=== PATIENT | male | born 2000 | race Caucasian/White ===

== ENCOUNTER 2020-06-28 14:35 | Outpatient (REF) | payer MEDICAID, SELFPAY ==
[2020-06-28 15:12] LABS: COVID-19 Test Negative (Negative)
== END 2020-06-28 14:36 | disposition home or self-care (01) ==
LOC: HO.LAB 14:35
PROVIDERS: Visit Provider Internal Medicine
DX: Z20.822 Contact with and (suspected) exposure to COVID-19 (principal)
CPT/HCPCS: 36415; 87635; C9803

== ENCOUNTER 2020-07-10 19:15 | Emergency (ER) | payer MEDICAID, SELFPAY ==
[2020-07-10 19:36] VITALS: BP 146/94; PULSE 103; RESP 18; TEMP 36.6; O2SAT 98; BMI 37.9
[2020-07-10 20:06] LABS: COVID-19 Test Negative (Negative)
--- NOTE | 2020-07-10 21:16 | ED.GENADULT ---
HPI - General Adult General Chief complaint: General Medical Stated complaint: weakness Time Seen by Provider: 07/10/20 21:16 Source: patient Mode of arrival: ambulatory Limitations: no limitations History of Present Illness HPI narrative: Patient with multiple complaints headache body aches nasal discharge allergies sore throat diarrhea everything started today no fever no chills no shortness of breath no cough. No other family member sick Related Data Previous Rx's Medication Instructions Recorded fluticasone propionate 2 spray INTRANASAL DAILY #16 g 07/10/20 ibuprofen 600 mg PO Q6H PRN #20 tab 07/10/20 Allergies Allergy/AdvReac Type Severity Reaction Status Date / Time No Known Allergies Allergy Unverified 11/17/19 16:55 [No Known Allergies*] Review of Systems Review of Systems: Yes all other systems are reviewed and are negative [facility] Past Medical History Medical History Asthma Social History Social History Alcohol intake: never Smoking Status: Never smoker Use of substances other than those prescribed or required for medical reasons: No Advance Directives: No Advance Directives Information Provided: Yes Physical Exam Vital Signs: Vital Signs: Last Vital Signs Temp 98.4 F 07/10/20 21:31 Pulse 98 07/10/20 21:31 Resp 16 07/10/20 21:31 BP 160/96 H 07/10/20 21:31 Pulse Ox 99 07/10/20 21:31 Body Mass Index 37.9 Appearance: Alert. Oriented X3. No acute distress. Eyes: PERRLA, No Nystagmus ENT: Pharynx normal. Oral Mucosa moist inflamed nasal turbinates Neck: Normal inspection. Neck supple. CVS: Normal heart rate and rhythm. Pulses normal. Respiratory: No respiratory distress. Equal air entry bilateral, no wheezing/rales/rhonchi Abdomen: Soft and nontender. Bowel sounds are present, no mass palpable, no CVA tenderness Skin: Skin warm and dry. Normal skin color. Normal skin turgor. Extremities: No lower extremity edema. No calf tenderness Neuro: Oriented X 3. No motor deficit. No sensory deficit Medical Decision Making MDM Narrative Medical decision making narrative: Patient with multiple minor complaints COVID testing is negative will discharge him home on symptomatic treatment will give him nasal Flonase and ibuprofen for headache Lab Data Lab results reviewed: Yes I reviewed the patient's lab results. Labs: Lab Results 07/10/20 Range/Units 19:39 COVID-19 (YANN) Negative (Negative) COVID-19 Clin Com See Note Discharge Plan Discharge Clinical Impression: Allergic rhinosinusitis Qualifiers: Allergic rhinitis trigger: unspecified Allergic rhinitis seasonality: seasonal Qualified Code(s): J30.2 - Other seasonal allergic rhinitis Patient Disposition: Home, Self-Care Instructions: Allergic Rhinitis (ED) Additional Instructions: Take nasal spray as advised. Follow with PCP if not better Drink plenty of fluids Prescriptions: New fluticasone propionate 50 mcg/actuation spray,suspension 2 spray intranasal DAILY Qty: 16 RF: 0 ibuprofen 600 mg tablet 600 mg PO Q6H PRN (Reason: pain) Qty: 20 RF: 0 Interventions: ED Discharge Assessment Last Done: 07/10/20 22:23 Discharge Date/Time: 07/10/20 22:24
[2020-07-10 21:31] VITALS: BP 160/96; PULSE 98; RESP 16; TEMP 36.9; O2SAT 99
[2020-07-10] MEDS: Ibuprofen 600 MG TABLET PO (22:16)
== END 2020-07-10 22:24 | disposition home or self-care (01) ==
PROVIDERS: Emergency Provider Internal Medicine
DX: J30.2 Other seasonal allergic rhinitis (principal); R53.1 Weakness; Z20.822 Contact with and (suspected) exposure to COVID-19
CPT/HCPCS: 36415; 87635; 99283; 99284

== ENCOUNTER 2020-07-26 16:46 | Emergency (ER) | payer MEDICAID, SELFPAY ==
[2020-07-26 17:17] VITALS: BP 110/80; PULSE 93; RESP 18; TEMP 36.3; O2SAT 98; BMI 41.1
--- NOTE | 2020-07-26 20:37 | ED.ABDPAIN ---
HPI - Abdominal Pain General Chief Complaint: Abdominal Pain Stated Complaint: rectal bleeding Time Seen by Provider: 07/26/20 17:13 History of Present Illness HPI narrative: Patient is a 19-year-old male with no significant past medical history. Patient had a bowel movement with formed stool today. Noticed also blood in the toilet bowl. Came to the emergency department. Had some diffuse abdominal cramping. No history of similar symptoms in the past. No nausea no vomiting. Patient's stool was normal in consistency. Patient denies any history of hemorrhoids. No coughing or congestion no diarrhea. No melena. No history of being on blood thinners. Patient is from home. Related Data Previous Rx's Medication Instructions Recorded fluticasone propionate 2 spray INTRANASAL DAILY #16 g 07/10/20 ibuprofen 600 mg PO Q6H PRN #20 tab 07/10/20 Allergies Allergy/AdvReac Type Severity Reaction Status Date / Time No Known Allergies Allergy Verified 07/26/20 17:21 [No Known Allergies*] Review of Systems Review of Systems Constitutional: No Weight loss, No Fever, No Chills, No Night Sweats, No Fatigue, No Malaise ENT/Mouth: No Hearing loss, No Ear Pain, No Nasal Congestion, No Sinus Pain, No Hoarseness, No sore throat, No Rhinorrhea, No Swallowing Difficulty Eyes: No Eye Pain, No Swelling, No Redness, No Foreign Body, No Discharge, No Vision Changes Cardiovascular: No Chest Pain, No SOB, No Dyspnea on Exertion, No Orthopnea, No Edema, No Palpitations Respiratory: No Cough, No Sputum, No Wheezing, No Smoke Exposure, No Dyspnea Gastrointestinal: No Nausea, No Vomiting, No Diarrhea, No Constipation, No abdominal Pain, No Hematochezia, No Melena Genitourinary: no irregular bleeding, No Dysuria, No Urinary Frequency, No Hematuria, No Urinary Incontinence, No Urgency, No Flank Pain, No Urinary Flow Changes, No Hesitancy Musculoskeletal: No joint pain, No Myalgias, No Joint Swelling Skin: No Skin Lesions, No rash Neuro: No Weakness, No Numbness, No Paresthesias, No Loss of Consciousness, No Dizziness, No Headache Psych: No Anxiety/Panic, No Depression, No SI/HI/AH/VH, No Social Issues, Heme/Lymph: No Bruising, No Bleeding,No Lymphadenopathy Endocrine: No Polyuria, No Polydipsia, No Temperature Intolerance Physical Exam Vital Signs: Vital Signs: Last Vital Signs Temp 98 F 07/26/20 21:33 Pulse 80 07/26/20 21:37 Resp 17 07/26/20 21:33 BP 145/85 H 07/26/20 21:37 Pulse Ox 98 07/26/20 21:33 Body Mass Index 41.1 Appearance: Alert. Oriented X3. No acute distress. Eyes: Pupils equal, round and reactive to light. ENT: Pharynx normal. Neck: Normal inspection. Neck supple. No lymph nodes noted. No crepitus CVS: Normal heart rate and rhythm. Pulses normal. Normal S1 and S2 Respiratory: No respiratory distress. Breath sounds normal. No Wheezing. No rales Abdomen: Soft and nontender. No rigidity. No distention. good BS x4 Rectal exam showed no external hemorrhoids. No fissures noted. Skin: Skin warm and dry. Normal skin color. Normal skin turgor. Extremities: No lower extremity edema. Neurovascular intact to all extremities. No Lacerations. No Rash Neuro: Oriented X 3. No motor deficit. No sensory deficit. Moving all extermities. No slurred speech MDM - Abdominal Pain MDM Narrative Medical decision making narrative: Positive formed stool in otherwise well person notice blood in the toilet bowl. Question hemorrhoids. Will check patient's blood count. He is in no distress. His abdominal exam is soft nontender nondistended. Patient feels cramping from time to time. Will check electrolytes as well. Currently in stable condition. Patient's hemoglobin is 14. Well appearing. No distress. Will discharge patient home. Close follow-up on an outpatient basis. Question internal hemorrhoids causing bleed. In stable condition with discharge Lab Data Result diagrams: 07/26/20 21:50 07/26/20 21:50 Labs: Lab Results 07/26/20 07/26/20 07/26/20 Range/Units 21:50 21:50 21:50 WBC 9.1 (4.8-10.8) X10*3/uL RBC 5.27 (4.60-5.80) X10*6/uL Hgb 14.0 (14.0-18.0) g/dl Hct 42.8 (42-52) % MCV 81.2 (80-98) fL MCH 26.6 L (27.0-33.0) pg MCHC 32.7 (31.0-36.0) g/dl RDW 13.5 (11.0-16.0) % Plt Count TNP MPV TNP Immature Gran % (Auto) 0.1 (0.0-0.4) % Neut % (Auto) 57.4 (45-73) % Lymph % (Auto) 32.0 (20-40) % Stanly % (Auto) 7.3 (2-11) % Eos % (Auto) 2.8 (0-4) % Baso % (Auto) 0.4 (0-2) % Lymph # (Auto) 2.9 (1.2-4.9) X10*3/uL Stanly # (Auto) 0.7 (0.1-1.2) X10*3/uL Eos # (Auto) 0.3 (0.0-0.4) X10*3/uL Baso # (Auto) 0.0 (0.0-0.2) X10*3/uL Abs Immat Gran (auto) 0.01 (0.00-0.03) X10*3/uL Absolute Neuts (auto) 5.2 (2.0-8.3) X10*3/uL Absolute Nucleated RBC 0.000 (0.0-0.012) X10*3/uL Nucleated RBC % (auto) 0.0 (0.0-0.2) /100WBC Hold Blue Top SEE NOTE Sodium 138 (135-145) mmol/L Potassium 4.8 (3.3-5.1) mmol/L Chloride 102 (96-108) mmol/L Carbon Dioxide 26 (22-29) mmol/L Anion Gap 15 (12-20) BUN 15 (9-16) mg/dL Creatinine 0.79 (0.5-1.4) mg/dL Estim Creat Clear Calc 173.8 Estimated GFR > 60 Random Glucose 79 (60-115) mg/dL Calcium 10.0 (8.4-10.2) mg/dL Total Bilirubin 0.3 (0.0-1.0) mg/dL AST 37 (5-37) U/L ALT 48 H (0-40) U/L Alkaline Phosphatase 94 (39-117) U/L Total Protein 8.7 H (6.5-8.0) g/dL Albumin 4.7 (3.5-5.0) g/dL Lipase 26 (8-78) U/L Discharge Plan Discharge Clinical Impression: Hemorrhoid Patient Disposition: Home, Self-Care Instructions: Hemorrhoids (ED), Rectal Bleeding (ED) Prescriptions: No Action fluticasone propionate 50 mcg/actuation spray,suspension 2 spray intranasal DAILY Qty: 16 RF: 0 ibuprofen 600 mg tablet 600 mg PO Q6H PRN (Reason: pain) Qty: 20 RF: 0 Referrals: Gila Smith MD [Primary Care Provider] - 2 days PMF Past Medical History Medical History Asthma Social History Social History Alcohol intake: never Advance Directives: No Advance Directives Information Provided: Yes
[2020-07-26 21:33] VITALS: BP 130/74; PULSE 81; RESP 17; TEMP 36.6; O2SAT 98
[2020-07-26 21:34] VITALS: BP 130/74; BP 132/90; PULSE 81; PULSE 84
[2020-07-26 21:35] VITALS: BP 145/85; PULSE 80
[2020-07-26 21:37] VITALS: BP 145/85; PULSE 80
[2020-07-26 21:56] LABS: Basophils Percent Auto 0.4 % (0-2); MANUAL DIFF FLAG SCAN; Monocytes Absolute Auto 0.7 X10*3/uL (0.1-1.2); PLT CLUMP 1; Red Cell Distribution Width 13.5 % (11.0-16.0); SCAN SMEAR FLAG 1
[2020-07-26 21:58] LABS: Eosinophils Absolute Auto 0.3 X10*3/uL (0.0-0.4); Eosinophils Percent Auto 2.8 % (0-4); Hematocrit 42.8 % (42-52); Imm Gran Abs Auto 0.01 X10*3/uL (0.00-0.03); Imm Gran Pct Auto 0.1 % (0.0-0.4); Lymphocytes Absolute Auto 2.9 X10*3/uL (1.2-4.9); Mean Corpuscular HGB Conc 32.7 g/dl (31.0-36.0); Mean Corpuscular Hemoglobin 26.6 pg (27.0-33.0); Mean Corpuscular Volume 81.2 fL (80-98); Monocytes Percent Auto 7.3 % (2-11); Neutrophils Absolute Auto 5.2 X10*3/uL (2.0-8.3); Neutrophils Percent Auto 57.4 % (45-73); Red Blood Count 5.27 X10*6/uL (4.60-5.80); White Blood Count 9.1 X10*3/uL (4.8-10.8)
[2020-07-26 22:25] LABS: Alanine Aminotransferase 48 U/L (0-40); Albumin Level 4.7 g/dL (3.5-5.0); Alkaline Phosphatase 94 U/L (39-117); Anion Gap 15 (12-20); Aspartate Amino Transferase 37 U/L (5-37); Bilirubin Total 0.3 mg/dL (0.0-1.0); Blood Urea Nitrogen 15 mg/dL (9-16); Carbon Dioxide 26 mmol/L (22-29); Chloride 102 mmol/L (96-108); Creatinine Clr Calc Pharmacy 173.8; Estimated Glomerular Filt Rate > 60; Glucose Random 79 mg/dL (60-115); Lipase 26 U/L (8-78); Potassium 4.8 mmol/L (3.3-5.1); Sodium 138 mmol/L (135-145); Total Protein 8.7 g/dL (6.5-8.0)
[2020-07-27 00:13] LABS: SLIDE REVIEW VERIFIED
== END 2020-07-26 22:48 | disposition home or self-care (01) ==
PROVIDERS: Emergency Provider Emergency Medicine Emergency Medical Services; PCP Family Medicine
DX: K64.9 Unspecified hemorrhoids (principal); R10.9 Unspecified abdominal pain; Z79.899 Other long term (current) drug therapy
CPT/HCPCS: 36415; 80053; 83690; 85025; 99283

== ENCOUNTER 2021-04-24 19:26 | Emergency (ER) | payer MEDICAID, SELFPAY ==
--- NOTE | ~2021-04-24 | CT_ITS ---
EXAMINATION: CT HEAD WITHOUT CONTRAST CT CERVICAL SPINE WITHOUT CONTRAST CT LUMBAR SPINE WITHOUT CONTRAST CT LUMBAR SPINE WITHOUT CONTRAST CLINICAL INFORMATION: Headache. Neck pain. Mid back pain. Lumbar back pain. COMPARISON: CTA head and neck from 05/18/2018. TECHNIQUE: Contiguous axial imaging was performed from the skull base to vertex without intravenous administration of contrast. Multidetector helical imaging of the cervical, thoracic, and lumbar spine was obtained without intravenous contrast. Multiple axial reformats and coronal/sagittal reconstructions were created the technologist workstation for review. This CT examination was performed using dose optimization techniques as appropriate, variously including the following: *Automated exposure control. *Adjustment of mA and/or kV according to patient size (this includes techniques or standardized protocols for targeted exams where dose is matched to indication/reason for exam; i.e. extremities or head). *Use of iterative reconstruction technique. DLP: 4150 mGy-cm FINDINGS: CT Head: There is no evidence of acute intracranial hemorrhage or edematous territorial infarction. There is no abnormal attenuation within the brain parenchyma. Cordero-white matter differentiation is preserved. The ventricles are normal in size and configuration. No evidence for obstructive hydrocephalus. No abnormal mass effect or midline shift. No extra-axial fluid collections. No acute soft tissue or osseous abnormalities. Moderate mucosal thickening of the paranasal sinuses. The mastoid air cells and middle ear cavities are clear. CT Cervical Spine: The atlantooccipital and atlantoaxial articulations remain well aligned. Straightening of the normal cervical lordosis. Otherwise, there is anatomic alignment of the vertebral bodies and posterior elements. No evidence of acute fracture or subluxation. The vertebral body heights and disc spaces are maintained. Mild multilevel facet joint arthropathy. No demonstrated significant osseous encroachment on the neural foramina. There is no prevertebral soft tissue swelling. The thyroid gland and remaining cervical soft tissues are normal in appearance. The lung apices demonstrate no abnormalities. CT Thoracic Spine: There are 12 rib-bearing thoracic type vertebrae. Normal anatomic alignment. No evidence of acute fracture or traumatic subluxation. The vertebral body heights are maintained. The intervertebral disc spaces are maintained. Mild multilevel facet joint arthropathy. No demonstrated significant osseous encroachment on the neural foramina. No suspicious lytic or sclerotic osseous lesions. No significant abnormalities of the paraspinal musculature. Limited evaluation of the intrathoracic structures without significant abnormalities. The descending thoracic aorta is of normal contour and caliber. CT Lumbar Spine: There are 5 nonrib-bearing lumbar-type vertebrae. Normal anatomic alignment. No evidence of acute fracture or traumatic subluxation. Small Schmorl's node in the superior endplate of L2. Otherwise, the vertebral body heights are maintained. The intervertebral disc spaces are largely maintained. Mild posterior disc bulges at L4-L5 and L5-S1. Mild multilevel facet joint arthropathy. No demonstrated overt spinal canal or neural foraminal stenosis. No suspicious lytic or sclerotic osseous lesions. No significant abnormalities of the paraspinal musculature. There is a nonobstructive 0.4 cm left-sided renal stone. Limited evaluation of the intra-abdominal structures without additional significant abnormalities. The abdominal aorta is of normal contour and caliber. CT/CT cervical spine wo con IMPRESSION: 1. No evidence of acute intracranial hemorrhage or edematous territorial infarction. 2. No evidence of acute fracture or traumatic subluxation of the cervical, thoracic, or lumbar spine. 3. Mild multilevel degenerative spondyloarthropathy of the spine. On this limited exam without intrathecal contrast, there is no demonstrated overt spinal canal or neural foraminal stenosis. 4. Moderate sinonasal mucosal disease. 5. Nonobstructive left-sided nephrolithiasis.
[2021-04-24 19:37] VITALS: BP 135/93; PULSE 88; RESP 18; TEMP 36.4; O2SAT 96; BMI 52.2
--- NOTE | 2021-04-24 20:29 | ED.NECK ---
HPI - Neck Pain/Injury General Chief Complaint: Neck Pain/Injury Stated Complaint: work injury neck and head pain Time Seen by Provider: 04/24/21 20:21 Source: patient Mode of arrival: ambulatory Limitations: no limitations History of Present Illness HPI Narrative: 20-year-old male presents with a work-related injury complaining of neck pain, pain to the midline of his back, headache since yesterday. Patient tells me he was backing of a truck at work, the back of the truck hit something and he was jerked forward and backwards hitting his head rapidly on the head rest. Since then he complains of headache, dizziness, neck pain, pain down the midline of his back. He tells me it is constant in nature. Worse with movement better at rest. He has no back problems. Otherwise healthy. He denies changes in bladder/bowel habits, denies incontinence, denies sensory/motor deficits, paresthesias, numbness, chest pain, shortness of breath, fevers, chills, abdominal pain, weakness, vision changes. Patient is not on blood thinners. MD complaint: neck pain, upper back pain and other (back pain ) Onset (ago): day(s) (1) Place: home Severity: severe Severity scale (1-10): 10 Quality: sharp Duration: constant Relieving factors: none Exacerbating factors: immobilization, movement of extremity and movement of neck Context: direct blow Associated symptoms: headache Related Data Previous Rx's Medication Instructions Recorded fluticasone propionate 50 2 spray INTRANASAL DAILY #16 g 07/10/20 mcg/actuation nasal spray,suspension ibuprofen 600 mg tablet 600 mg PO Q6H PRN #20 tab 07/10/20 cyclobenzaprine 10 mg tablet 10 mg PO BEDTIME PRN #7 tab 04/24/21 Allergies Allergy/AdvReac Type Severity Reaction Status Date / Time No Known Allergies Allergy Verified 04/24/21 19:37 [No Known Allergies*] Review of Systems Review of Systems: Constitutional : No Weight loss, No Fever, No Chills, No Fatigue, No Malaise ENT/Mouth : No sore throat, No Rhinorrhea Eyes: No Eye Pain, No Swelling, No Redness Cardiovascular : No Chest Pain, No SOB, No Dyspnea on Exertion, No Orthopnea, No Edema, No Palpitations Respiratory : No Cough, No Sputum, No Wheezing Gastrointestinal : No Nausea, No Vomiting, No Diarrhea, No Constipation, No abdominal Pain, No Hematochezia, No Melena Genitourinary : No Dysuria, No Urinary Frequency, No Hematuria, Musculoskeletal : + joint pain, No Myalgias, No Joint Swelling, + back pain Skin : No Skin Lesions, No rash Neuro : No Weakness, No Numbness, No Dizziness, No Headache Psych : No Anxiety/Panic, No Depression All other systems reviewed and are negative Yes all other systems are reviewed and are negative [facility] Past Medical History Attestation statement: The following information was validated with the patient. Source: old records reviewed and nursing notes reviewed Medical History Asthma Social History Social History Alcohol intake: never Advance Directives: No Advance Directives Information Provided: No Physical Exam Vital Signs: Vital Signs: Last Vital Signs Temp 97.5 F 04/24/21 19:37 Pulse 88 04/24/21 19:37 Resp 18 04/24/21 19:37 BP 135/93 H 04/24/21 19:37 Pulse Ox 96 04/24/21 19:37 BMI result Body Mass Index 52.2 VSS Appearance: Alert.? Oriented X3.? No acute distress.? Head: Normocephalic, atraumatic, no step-offs or deformities Eyes: Pupils equal, round and reactive to light.? ENT: Pharynx normal.? Neck: Normal inspection.? Neck supple.? CVS: Normal heart rate and rhythm.? Pulses normal.? Respiratory: No respiratory distress.? Breath sounds normal.? Abdomen: Soft and nontender.? Skin: Skin warm and dry.? Normal skin color.? Normal skin turgor.? Extremities: No lower extremity edema.? No calf ttp. 5/5 strength to bilateral upper and lower extremities Back: No midline tenderness, no C-spine tenderness, full range of motion, no CVA tenderness bilaterally Neuro: Oriented X 3.? No motor deficit.? No sensory deficit. CN 2-12 intact 2+ patellar reflexes equal in bilateral. Normal [id number], [id number]. No saddle paresthesias. Course Reevaluation(s) Reevaluation #1: CTs of head, cervical spine and lumbar spine without acute findings, subluxations, dislocations or traumatic injuries. Some incidental findings were seen a these were shared with the patient. Advised return with new or worsening symptoms. Will be discharged home on a muscle relaxer. Likely whiplash. comfortable with discharge. Time: 22:39 MDM - Neck Pain/Injury [facility] Narrative Medical decision making narrative: 2033 20 yo m presents with acute whiplash with neck pain, headache and pain down the midline of his back. Physical examination significant for pain down his spine from cervical to thoracic region. Paraspinous tenderness in cervical, and thoracic region. No focal neuro deficits. No saddle paresthesias. History and physical examination not consistent with cauda equina, epidural abscess, cervical subluxation or acute fracture. Patient ambulating with a steady gait no issues. Plan at this time is to obtain imaging to rule out fractures/dislocations. Medical Records Attestation: I reviewed the patient's medical records. Lab Data Attestation: I reviewed the patient's lab results. Critical Care Time Critical Care Time Critical Care Time: No Discharge Plan Discharge Clinical Impression: Strain of neck muscle, Work related injury, Whiplash injury to neck Patient Disposition: Home, Self-Care Instructions: Cervical Strain (DC), Muscle Strain (ED) Additional Instructions: Take your medications as prescribed. If you were prescribed antibiotics today, it is important that you take your medication to their entirety, do not skip any doses, do not finish them early. Follow-up with your primary care provider this week. Follow up with the work tima [phone] Return to the emergency department with new or worsening symptoms. Such as changes in bladder/bowel habits, inability to control your bladder/bowel, weakness, chest pain, shortness of breath, fevers, chills, numbness, tingling. You can alternate ibuprofen every 6, Tylenol every 4 as needed for pain. In case of emergency call 911 CT/CT head/brain wo con IMPRESSION: 1. No evidence of acute intracranial hemorrhage or edematous territorial infarction. ? 2. No evidence of acute fracture or traumatic subluxation of the cervical, thoracic, or lumbar spine. ? 3. Mild multilevel degenerative spondyloarthropathy of the spine. On this limited exam without intrathecal contrast, there is no demonstrated overt spinal canal or neural foraminal stenosis. ? 4. Moderate sinonasal mucosal disease. ? 5. Nonobstructive left-sided nephrolithiasis. Prescriptions: New cyclobenzaprine 10 mg tablet 10 mg PO BEDTIME PRN (Reason: muscle spasm) Qty: 7 0RF No Action fluticasone propionate 50 mcg/actuation spray,suspension 2 spray intranasal DAILY Qty: 16 0RF Rx Instructions: administer into each nostril ibuprofen 600 mg tablet 600 mg PO Q6H PRN (Reason: pain) Qty: 20 0RF Referrals: Gila Smith MD [Primary Care Provider] - 2 days Stand Alone Forms: Work/School Release
== END 2021-04-24 22:54 | disposition home or self-care (01) ==
PROVIDERS: Emergency Provider Emergency Medicine; PCP Family Medicine
DX: S16.1XXA Strain of muscle, fascia and tendon at neck level, initial encounter (principal); S13.4XXA Sprain of ligaments of cervical spine, initial encounter; V47.0XXA Car driver injured in collision with fixed or stationary object in nontraffic accident, initial encounter; Y93.89 Activity, other specified; Y92.481 Parking lot as the place of occurrence of the external cause; Y99.0 Civilian activity done for income or pay
CPT/HCPCS: 70450; 72125; 72128; 72131; 99281; 99283; 99284

== ENCOUNTER 2021-08-20 21:44 | Emergency (ER) | payer MEDICAID, SELFPAY ==
[2021-08-20 21:53] VITALS: BP 148/85; PULSE 109; RESP 18; TEMP 36.9; O2SAT 96; BMI 48.2
[2021-08-20 22:08] LABS: MANUAL DIFF FLAG NO
[2021-08-20 22:14] LABS: Basophils Absolute Auto 0.1 X10*3/uL (0.0-0.2); Basophils Percent Auto 0.5 % (0-2); Eosinophils Absolute Auto 0.7 X10*3/uL (0.0-0.4); Eosinophils Percent Auto 6.2 % (0-4); Hematocrit 43.8 % (42.0-52.0); Imm Gran Abs Auto 0.04 X10*3/uL (0.00-0.03); Imm Gran Pct Auto 0.3 % (0.0-0.4); Lymphocytes Absolute Auto 3.1 X10*3/uL (1.2-4.9); Lymphocytes Percent Auto 26.6 % (20-40); Mean Corpuscular Hemoglobin 25.6 pg (27.0-33.0); Mean Corpuscular Volume 80.1 fL (80.0-98.0); Mean Platelet Volume 8.9 fL (9.4-12.4); Monocytes Absolute Auto 0.9 X10*3/uL (0.1-1.2); Monocytes Percent Auto 7.4 % (2-11); Platelet Count 377 X10*3/uL (160-400); Red Blood Count 5.47 X10*6/uL (4.60-5.80); Red Cell Distribution Width 13.5 % (11.0-16.0); White Blood Count 11.8 X10*3/uL (4.8-10.8)
[2021-08-20 22:25] LABS: Alanine Aminotransferase 52 U/L (0-40); Albumin Level 4.6 g/dL (3.5-5.0); Alkaline Phosphatase 90 U/L (39-117); Anion Gap 14 (12-20); Aspartate Amino Transferase 24 U/L (5-37); Bilirubin Total 0.3 mg/dL (0.0-1.0); Blood Urea Nitrogen 14 mg/dL (9-16); Carbon Dioxide 27 mmol/L (22-29); Chloride 104 mmol/L (96-108); Estimated Glomerular Filt Rate > 60; Glucose Random 117 mg/dL (60-115); Potassium 4.2 mmol/L (3.3-5.1); Sodium 141 mmol/L (135-145); Total Protein 8.2 g/dL (6.5-8.0)
--- NOTE | 2021-08-21 00:24 | ED_ITS ---
HPI - SOB/Dyspnea General Chief Complaint: Dyspnea Stated Complaint: sob,asthma Time Seen by Provider: 08/21/21 00:24 Source: patient Mode of arrival: ambulatory Limitations: no limitations History of Present Illness HPI Narrative: Patient history of asthma been having frequent asthma attacks for last few months has not seen any PCP it does have a cat at home no fever no chills received COVID vaccine without any booster yet no other family member sick does have dry cough no expectoration Related Data Previous Rx's Medication Instructions Recorded fluticasone propionate 50 2 spray intranasal DAILY #16 grams 07/10/20 mcg/actuation nasal spray,suspension ibuprofen 600 mg tablet 600 mg PO Q6H PRN pain #20 tabs 07/10/20 cyclobenzaprine 10 mg tablet 10 mg PO BEDTIME PRN muscle spasm 04/24/21 #7 tabs albuterol sulfate 90 mcg/actuation 2 puff inhalation Q4-6H PRN 08/21/21 aerosol inhaler (ProAir HFA) Wheezing #8.5 grams prednisone 20 mg tablet 40 mg PO DAILY #10 tabs 08/21/21 Allergies Allergy/AdvReac Type Severity Reaction Status Date / Time No Known Allergies Allergy Verified 04/24/21 19:37 [No Known Allergies*] Review of Systems 2 Review of Systems: Yes all other systems are reviewed and are negative PMFSH Past Medical History Medical History Asthma Social History Social History Alcohol intake: never Advance Directives: No Physical Exam Vital Signs: Vital Signs: Last Vital Signs Temp 98.2 F 08/21/21 00:27 Pulse 96 08/21/21 01:02 Resp 16 08/21/21 01:02 BP 132/86 08/21/21 00:27 Pulse Ox 96 08/21/21 00:27 O2 Del Method 08/21/21 00:27 BMI result Body Mass Index 48.2 Appearance: Alert. Oriented X3. No acute distress. Obese ENT: Pharynx normal. Oral Mucosa moist Neck: Normal inspection. Neck supple. CVS: Normal heart rate and rhythm. Pulses normal. Respiratory: No respiratory distress. Equal air entry bilateral, bilateral wheeze Abdomen: Soft and nontender. Bowel sounds are present, no mass palpable, no CVA tenderness Skin: Skin warm and dry. Normal skin color. Normal skin turgor. Extremities: No lower extremity edema. No calf tenderness Neuro: Oriented X 3. No motor deficit. MDM - SOB/Dyspnea MDM Narrative Medical decision making narrative: Patient's asthma likely from the cat's advised to stay away from the cat will discharge patient on prednisone albuterol inhaler patient is saturating 96% on room air Lab Data Attestation: I reviewed the patient's lab results. Result diagrams: 08/20/21 22:04 08/20/21 22:04 Labs: Lab Results 08/20/21 08/20/21 08/21/21 Range/Units 22:04 22:04 00:34 WBC 11.8 H (4.8-10.8) X10*3/uL RBC 5.47 (4.60-5.80) X10*6/uL Hgb 14.0 (14.0-18.0) g/dl Hct 43.8 (42.0-52.0) % MCV 80.1 (80.0-98.0) fL MCH 25.6 L (27.0-33.0) pg MCHC 32.0 (31.0-36.0) g/dl RDW 13.5 (11.0-16.0) % Plt Count 377 (160-400) X10*3/uL MPV 8.9 L (9.4-12.4) fL Immature Gran % (Auto) 0.3 (0.0-0.4) % Neut % (Auto) 59.0 (45-73) % Lymph % (Auto) 26.6 (20-40) % [place] % (Auto) 7.4 (2-11) % Eos % (Auto) 6.2 H (0-4) % Baso % (Auto) 0.5 (0-2) % Lymph # (Auto) 3.1 (1.2-4.9) X10*3/uL [place] # (Auto) 0.9 (0.1-1.2) X10*3/uL Eos # (Auto) 0.7 H (0.0-0.4) X10*3/uL Baso # (Auto) 0.1 (0.0-0.2) X10*3/uL Abs Immat Gran (auto) 0.04 H (0.00-0.03) X10*3/uL Absolute Neuts (auto) 7.0 (2.0-8.3) x10*3/uL Absolute Nucleated RBC 0.000 (0.0-0.012) X10*3/uL Nucleated RBC % (auto) 0.0 (0.0-0.2) /100WBC Sodium 141 (135-145) mmol/L Potassium 4.2 (3.3-5.1) mmol/L Chloride 104 (96-108) mmol/L Carbon Dioxide 27 (22-29) mmol/L Anion Gap 14 (12-20) BUN 14 (9-16) mg/dL Creatinine 0.85 (0.5-1.4) mg/dL Estim Creat Clear Calc 174.0 Estimated GFR > 60 Random Glucose 117 H D (60-115) mg/dL Calcium 10.0 (8.4-10.2) mg/dL Total Bilirubin 0.3 (0.0-1.0) mg/dL AST 24 (5-37) U/L ALT 52 H (0-40) U/L Alkaline Phosphatase 90 (39-117) U/L Total Protein 8.2 H (6.5-8.0) g/dL Albumin 4.6 (3.5-5.0) g/dL COVID-19 (YANN) (Negative) COVID-19 Clin Com Influenza Type A (WENDY) Negative (Negative) Influenza Type B (WENDY) Negative (Negative) Influenza A & B Note See Note 08/21/21 Range/Units 00:34 WBC (4.8-10.8) X10*3/uL RBC (4.60-5.80) X10*6/uL Hgb (14.0-18.0) g/dl Hct (42.0-52.0) % MCV (80.0-98.0) fL MCH (27.0-33.0) pg MCHC (31.0-36.0) g/dl RDW (11.0-16.0) % Plt Count (160-400) X10*3/uL MPV (9.4-12.4) fL Immature Gran % (Auto) (0.0-0.4) % Neut % (Auto) (45-73) % Lymph % (Auto) (20-40) % [place] % (Auto) (2-11) % Eos % (Auto) (0-4) % Baso % (Auto) (0-2) % Lymph # (Auto) (1.2-4.9) X10*3/uL [place] # (Auto) (0.1-1.2) X10*3/uL Eos # (Auto) (0.0-0.4) X10*3/uL Baso # (Auto) (0.0-0.2) X10*3/uL Abs Immat Gran (auto) (0.00-0.03) X10*3/uL Absolute Neuts (auto) (2.0-8.3) x10*3/uL Absolute Nucleated RBC (0.0-0.012) X10*3/uL Nucleated RBC % (auto) (0.0-0.2) /100WBC Sodium (135-145) mmol/L Potassium (3.3-5.1) mmol/L Chloride (96-108) mmol/L Carbon Dioxide (22-29) mmol/L Anion Gap (12-20) BUN (9-16) mg/dL Creatinine (0.5-1.4) mg/dL Estim Creat Clear Calc Estimated GFR Random Glucose (60-115) mg/dL Calcium (8.4-10.2) mg/dL Total Bilirubin (0.0-1.0) mg/dL AST (5-37) U/L ALT (0-40) U/L Alkaline Phosphatase (39-117) U/L Total Protein (6.5-8.0) g/dL Albumin (3.5-5.0) g/dL COVID-19 (YANN) Negative (Negative) COVID-19 Clin Com See Note Influenza Type A (WENDY) (Negative) Influenza Type B (WENDY) (Negative) Influenza A & B Note Discharge Plan Discharge Clinical Impression: Asthma with exacerbation Patient Disposition: Home, Self-Care Instructions: Asthma (ED) Additional Instructions: Stay away from the Cats likely cats are triggering her asthma attacks Use albuterol nebulizing treatment every 4-6 hours, prednisone and follow with PCP Prescriptions: New prednisone 20 mg tablet 40 mg PO DAILY Qty: 10 0RF albuterol sulfate [ProAir HFA] 90 mcg/actuation HFA aerosol inhaler 2 puff inhalation Q4-6H PRN (Reason: Wheezing) Qty: 8.5 0RF No Action fluticasone propionate 50 mcg/actuation spray,suspension 2 spray intranasal DAILY Qty: 16 0RF Rx Instructions: administer into each nostril ibuprofen 600 mg tablet 600 mg PO Q6H PRN (Reason: pain) Qty: 20 0RF cyclobenzaprine 10 mg tablet 10 mg PO BEDTIME PRN (Reason: muscle spasm) Qty: 7 0RF
[2021-08-21 00:27] VITALS: BP 132/86; PULSE 93; RESP 16; TEMP 36.8; O2SAT 96
[2021-08-21 00:57] LABS: COVID-19 Test Negative (Negative); IDNOW Serial# 55D5AD1C; Influenza A Negative (Negative); Influenza B2 Negative (Negative)
[2021-08-21 01:02] VITALS: PULSE 96; RESP 16; O2SAT 95
[2021-08-21] MEDS: Albuterol Sulfate (0.083%) 2.5 MG/3 ML VIAL.NEB 5 MG INHALE (01:02)
[2021-08-21] MEDS: predniSONE 20 MG TABLET 60 MG PO (01:09)
--- NOTE | 2021-08-21 01:11 | PC.NURSE ---
Medicated per . Notified THEODORA Ng.
== END 2021-08-21 01:27 | disposition home or self-care (01) ==
PROVIDERS: Emergency Provider Internal Medicine; PCP Family Medicine
DX: J45.901 Unspecified asthma with (acute) exacerbation (principal); R06.02 Shortness of breath; Z20.822 Contact with and (suspected) exposure to COVID-19; Z79.899 Other long term (current) drug therapy
CPT/HCPCS: 36415; 80053; 85025; 87502; 87635; 94640; 94644; 99284

== ENCOUNTER 2021-10-30 13:18 | Emergency (ER) | payer MEDICAID, SELFPAY ==
--- NOTE | ~2021-10-30 | CT_ITS ---
EXAMINATION: CT ABDOMEN AND PELVIS WITHOUT CONTRAST CLINICAL INFORMATION: Flank pain COMPARISON: None TECHNIQUE: Multidetector volumetric imaging was performed from the superior aspect of the liver through the pubic symphysis. Sagittal and coronal reformatted images were obtained on the technologist's workstation. This CT examination was performed using dose optimization techniques as appropriate, variously including the following: *Automated exposure control *Adjustment of mA and/or kV according to patient size (this includes techniques or standardized protocols for targeted exams where dose is matched to indication/reason for exam; i.e. extremities or head) *Use of iterative reconstruction technique DLP: 1117 mGy-cm FINDINGS: LUNG BASES: The visualized lung bases are unremarkable. LIVER, GALLBLADDER, AND BILIARY TREE: Changes of diffuse hepatic steatosis. No focal lesion. No biliary ductal dilatation. The gallbladder is unremarkable with no evidence of radiopaque gallstones, gallbladder wall thickening, or obvious pericholecystic inflammatory changes. PANCREAS: Unremarkable. SPLEEN: Unremarkable. ADRENAL GLANDS: Unremarkable. KIDNEYS AND URETERS: 6 mm nonobstructing left lower pole calyceal stone. On the right, there is mild fullness of the urinary collecting system down to the level distal ureter where there is a 2 mm ureteral stone suspected. No additional findings. BLADDER: Grossly normal. GASTROINTESTINAL TRACT: The small and large bowel are unremarkable. The appendix is unremarkable. ABDOMINAL WALL: No significant hernia is appreciated. LYMPH NODES: Normal. VASCULAR: Unremarkable. PELVIC VISCERA: Unremarkable. OSSEOUS STRUCTURES: Unremarkable. CT/CT abdomen pelvis wo IV con IMPRESSION: 1. 2 mm minimally obstructing right ureteral stone. 2. Nonobstructing left intrarenal 6 mm stone. Fleischner guidelines were followed.
[2021-10-30 13:48] VITALS: BP 139/84; PULSE 75; RESP 18; TEMP 36.7; O2SAT 97; BMI 51.0
[2021-10-30 15:34] VITALS: BP 152/98; PULSE 68; RESP 18; O2SAT 96
[2021-10-30] MEDS: Ondansetron ODT 4 MG TAB.RAPDIS TRANSLINGU (15:38)
[2021-10-30 15:45] LABS: Appearance Urine Clear; Color Urine Yellow; Glucose Urine UA Negative (Negative); Leukocyte Esterase Urine Negative (Negative); Nitrite Urine Negative (Negative); Specific Gravity - Urine 1.025 (1.005-1.025); Urine Blood Trace (Negative); Urine Ketones Trace mg/dL (Negative); Urine Protein 30 (1+) mg/dL (Neg-Trace)
[2021-10-30 15:48] LABS: Bacteria Urine None Seen (None Seen); RBC Urine 0-2 /HPF (0-2); Squamous Epithelial Cell Urine 0-2 /HPF (0-2); WBC Urine 0-5 /HPF (0-5)
--- NOTE | 2021-10-30 16:41 | ED.BACK ---
HPI - Back Pain/Injury General Chief Complaint: Back Pain/Injury Stated Complaint: backache, throwing up Time Seen by Provider: 10/30/21 15:41 Related Data Previous Rx's Medication Instructions Recorded fluticasone propionate 50 2 spray intranasal DAILY #16 grams 07/10/20 mcg/actuation nasal spray,suspension ibuprofen 600 mg tablet 600 mg PO Q6H PRN pain #20 tabs 07/10/20 cyclobenzaprine 10 mg tablet 10 mg PO BEDTIME PRN muscle spasm 04/24/21 #7 tabs albuterol sulfate 90 mcg/actuation 2 puff inhalation Q4-6H PRN 08/21/21 aerosol inhaler (ProAir HFA) Wheezing #8.5 grams prednisone 20 mg tablet 40 mg PO DAILY #10 tabs 08/21/21 Allergies Allergy/AdvReac Type Severity Reaction Status Date / Time No Known Allergies Allergy Verified 04/24/21 19:37 [No Known Allergies*] [facility] Past Medical History Attestation statement: The following information was validated with the patient. Source: old records reviewed Medical History Asthma Social History Social History Alcohol intake: never Advance Directives: No Advance Directives Information Provided: No Physical Exam Vital Signs: Vital Signs: Last Vital Signs Temp 98.1 F 10/30/21 13:48 Pulse 68 10/30/21 15:34 Resp 18 10/30/21 15:34 BP 152/98 H 10/30/21 15:34 Pulse Ox 96 10/30/21 15:34 O2 Del Method 10/30/21 13:48 BMI result Body Mass Index 51.0 Course Course Course Narrative: 17:57 white count 15.2, MDM - Back Pain/Injury Lab Data Result diagrams: 10/30/21 17:40 10/30/21 17:40 Labs: Lab Results 10/30/21 Range/Units 15:36 Urine Color Yellow Urine Appearance Clear Urine pH 6.0 (5.0-9.0) Ur Specific [place] 1.025 (1.005-1.025) Urine Protein 30 (1+) H (Neg-Trace) mg/dL Urine Glucose (UA) Negative (Negative) mg/dL Urine Ketones Trace (Negative) mg/dL Urine Blood Trace H (Negative) Urine Nitrite Negative (Negative) Ur Leukocyte Esterase Negative (Negative) Urine RBC 0-2 (0-2) /HPF Urine WBC 0-5 (0-5) /HPF Ur Squamous Epith Cells 0-2 (0-2) /HPF Urine Bacteria None Seen (None Seen) Hyaline Casts 3-5 (0-2) /LPF Discharge Plan Discharge Prescriptions: No Action fluticasone propionate 50 mcg/actuation spray,suspension 2 spray intranasal DAILY Qty: 16 0RF Rx Instructions: administer into each nostril ibuprofen 600 mg tablet 600 mg PO Q6H PRN (Reason: pain) Qty: 20 0RF cyclobenzaprine 10 mg tablet 10 mg PO BEDTIME PRN (Reason: muscle spasm) Qty: 7 0RF prednisone 20 mg tablet 40 mg PO DAILY Qty: 10 0RF albuterol sulfate [ProAir HFA] 90 mcg/actuation HFA aerosol inhaler 2 puff inhalation Q4-6H PRN (Reason: Wheezing) Qty: 8.5 0RF
[2021-10-30] MEDS: Ketorolac Tromethamine 30 MG/ML VIAL IVPUSH (17:39)
[2021-10-30] MEDS: 0.9 % Sodium Chloride 1,000 ML 999 ML IVCONT ×4 (17:39→22:37)
[2021-10-30] MEDS: ondansetron HCL 4 MG/2 ML VIAL IVPUSH (17:39)
[2021-10-30 17:46] LABS: MANUAL DIFF FLAG NO
[2021-10-30 17:48] LABS: Basophils Percent Auto 0.3 % (0-2); Eosinophils Percent Auto 0.1 % (0-4); Hematocrit 41.9 % (42.0-52.0); Hemoglobin 13.7 g/dl (14.0-18.0); Imm Gran Abs Auto 0.06 X10*3/uL (0.00-0.03); Imm Gran Pct Auto 0.4 % (0.0-0.4); Lymphocytes Absolute Auto 1.1 X10*3/uL (1.2-4.9); Lymphocytes Percent Auto 7.4 % (20-40); Mean Corpuscular HGB Conc 32.7 g/dl (31.0-36.0); Mean Corpuscular Hemoglobin 26.4 pg (27.0-33.0); Mean Corpuscular Volume 80.9 fL (80.0-98.0); Monocytes Absolute Auto 0.5 X10*3/uL (0.1-1.2); Monocytes Percent Auto 3.4 % (2-11); Neutrophils Absolute Auto 13.5 x10*3/uL (2.0-8.3); Neutrophils Percent Auto 88.4 % (45-73); Platelet Count 399 X10*3/uL (160-400); Red Blood Count 5.18 X10*6/uL (4.60-5.80); Red Cell Distribution Width 13.7 % (11.0-16.0); White Blood Count 15.2 X10*3/uL (4.8-10.8)
[2021-10-30] MEDS: cefTRIAXone sodium 1 GM in 0.9 % Sodium Chloride 50 ML IV (18:22)
[2021-10-30 18:24] VITALS: BP 155/90; PULSE 93; RESP 16; TEMP 37.3; O2SAT 100
--- NOTE | 2021-10-30 18:34 | ED.ABDPAIN ---
HPI - Abdominal Pain General Chief Complaint: Back Pain/Injury Stated Complaint: backache, throwing up Time Seen by Provider: 10/30/21 15:41 Source: patient Mode of arrival: ambulatory Limitations: no limitations History of Present Illness HPI narrative: 21-year-old male presents with 1 day of severe right lower back and flank pain, nausea, vomiting, fevers and diaphoresis. States that he took some Tylenol, some muscle relaxers, and has been resting but nothing he does makes him feel better. He does have a history of back pain but states that this pain feels much different. He does not report chest pain or pressure, palpitations, edema, hematuria, dizziness or weakness. MD elicited complaint: abdominal pain and flank pain Pertinent past history: kidney stones Onset (ago): day(s) Pain Consistency: constant Location: R flank Severity: severe Pain scale (0-10): 9 Quality: stabbing and aching Radiation: suprapubic Exacerbating factors: vomiting and movement Relieving factors: nothing Associated symptoms: nausea, vomiting, fever and chills Treatments prior to arrival: NSAIDs Related Data Previous Rx's Medication Instructions Recorded ondansetron 4 mg disintegrating 4 mg PO Q6H PRN nausea and 10/30/21 tablet vomiting #10 tabs oxycodone 5 mg tablet 5 mg PO BEDTIME PRN pain #3 tabs 10/30/21 prednisone 20 mg tablet 20 mg PO DAILY 3 days #3 tabs 10/30/21 tamsulosin 0.4 mg capsule (Flomax) 0.4 mg PO DAILY 30 days #30 caps 10/30/21 Allergies Allergy/AdvReac Type Severity Reaction Status Date / Time No Known Allergies Allergy Verified 04/24/21 19:37 [No Known Allergies*] Review of Systems Review of Systems Constitutional: No Fever, No Chills ENT/Mouth: No sore throat Eyes: No Eye Pain, No Swelling, No Redness Cardiovascular: No Chest Pain, No SOB Respiratory: No Cough, No Sputum, No Wheezing Gastrointestinal: positive Nausea, positive Vomiting, No Diarrhea, positive abdominal pain Genitourinary: positive Dysuria, positive urinary frequency, positive Hematuria, positive Flank Pain, positive hesitancy Musculoskeletal: No joint pain, No Myalgias Skin: No Skin Lesions, No rash Neuro: No Weakness, No Numbness, No Headache Psych: No Anxiety/Panic, No Depression Heme/Lymph: No Bruising, No Lymphadenopathy Endocrine: No Polyuria, No Polydipsia Yes all other systems are reviewed and are negative [facility] Past Medical History Attestation statement: The following information was validated with the patient. Source: old records reviewed Medical History Asthma Social History Social History Alcohol intake: never Patient Tobacco Use Status: Never used Tobacco Use of substances other than those prescribed or required for medical reasons: No Advance Directives: No Advance Directives Information Provided: No Physical Exam ED Vital Signs: Vital Signs - 24 hr 10/30/21 13:48 10/30/21 15:34 10/30/21 18:24 Temperature 98.1 F 99.2 F Pulse Rate 75 68 93 Respiratory Rate 18 18 16 Blood Pressure 139/84 152/98 H 155/90 H Pulse Oximetry 97 96 100 Oxygen Delivery Method Room Air Room Air 10/30/21 20:37 10/30/21 22:54 10/31/21 00:32 Temperature 97.9 F 98 F Pulse Rate 91 98 100 Respiratory Rate 16 16 18 Blood Pressure 145/95 H 172/110 H 130/88 Pulse Oximetry 100 97 96 Oxygen Delivery Method Room Air Room Air Room Air BMI result Body Mass Index 51.0 Appearance: Alert. Oriented X3. Moderate distress Eyes: Pupils equal, round and reactive to light. ENT: Pharynx normal. Neck: Normal inspection. Neck supple. CVS: Normal heart rate and rhythm. Pulses normal. Respiratory: No respiratory distress. Breath sounds normal. Abdomen: Soft and diffusely tender, right-sided CVA tenderness. Skin: Skin warm and dry. Normal skin color. Normal skin turgor. Extremities: No lower extremity edema. Moves all extremities against resistance. Neuro: No motor deficit. No sensory deficit. Cranial nerves 2-12 intact. Course Course Course Narrative: 21-year-old male presents for severe right lower back pain, nausea, vomiting, fevers and chills. He is diaphoretic, and has been dry heaving while in the emergency department waiting room. Zofran was ineffective. At this time will order Zofran, fluids, and Toradol. Will order CT scan of abdomen and pelvis. Physical exam positive for right-sided lower quadrant abdominal tenderness with right-sided CVA tenderness. Vital signs are stable and within normal limits. Patient is afebrile appears tired but nontoxic. Patient has a 15.2 white count, lactic is 1.7, no other indication of organ dysfunction. No indication of sepsis at this time. Urinalysis is negative. Elevated white count could be reactive. There is heme consistent with his history of kidney stone and presentation of suspected kidney stone. 19:30 CT scan indicates a 2 mm obstructing right ureteral stone, and non obstructing left intrarenal 6 mm stone. No visible hydro nephrosis or perinephric stranding. 19:[address] Argueta, after reviewing patient's chart Dr. Argueta feels that a single dose of antibiotics, alpha-doug, 3 days of 20 mg of prednisone and pain management would be effective. Would also like 2 additional L of fluid to help flush out the stone and 20 mg of IV 22:06 RN reports that patient is nauseous with increased pain. Order for Reglan, Benadryl and morphine. Will give prescriptions for pain management, prednisone, alpha-doug. Patient verbalized understanding of and agrees to plan of care discharge home. Verbalized understanding of signs symptoms indicate need for emergent intervention. Consultations Consultation #1: Kendall Time: 19:30 MDM - Abdominal Pain Differential Diagnosis Differential diagnosis: Likely abdominal pain, acute appendicitis and calculus of kidney Differential diagnosis narrative:: Hydronephrosis, pyelonephritis Medical Records Attestation: I reviewed the patient's medical records. Lab Data Attestation: I reviewed the patient's lab results. Result diagrams: 10/30/21 17:40 10/30/21 18:59 Labs: Lab Results 10/30/21 10/30/21 10/30/21 Range/Units 15:36 17:40 18:59 WBC 15.2 H (4.8-10.8) X10*3/uL RBC 5.18 (4.60-5.80) X10*6/uL Hgb 13.7 L (14.0-18.0) g/dl Hct 41.9 L (42.0-52.0) % MCV 80.9 (80.0-98.0) fL MCH 26.4 L (27.0-33.0) pg MCHC 32.7 (31.0-36.0) g/dl RDW 13.7 (11.0-16.0) % Plt Count 399 (160-400) X10*3/uL MPV 9.0 L (9.4-12.4) fL Immature Gran % (Auto) 0.4 (0.0-0.4) % Neut % (Auto) 88.4 H (45-73) % Lymph % (Auto) 7.4 L (20-40) % [place] % (Auto) 3.4 (2-11) % Eos % (Auto) 0.1 (0-4) % Baso % (Auto) 0.3 (0-2) % Lymph # (Auto) 1.1 L (1.2-4.9) X10*3/uL [place] # (Auto) 0.5 (0.1-1.2) X10*3/uL Eos # (Auto) 0.0 (0.0-0.4) X10*3/uL Baso # (Auto) 0.0 (0.0-0.2) X10*3/uL Abs Immat Gran (auto) 0.06 H (0.00-0.03) X10*3/uL Absolute Neuts (auto) 13.5 H (2.0-8.3) x10*3/uL Absolute Nucleated RBC 0.000 (0.0-0.012) X10*3/uL Nucleated RBC % (auto) 0.0 (0.0-0.2) /100WBC Sodium 141 (135-145) mmol/L Potassium 4.6 (3.3-5.1) mmol/L Chloride 107 (96-108) mmol/L Carbon Dioxide 24 (22-29) mmol/L Anion Gap 15 (12-20) BUN 11 (9-16) mg/dL Creatinine 0.90 (0.5-1.4) mg/dL Estim Creat Clear Calc 170.0 Estimated GFR > 60 Random Glucose 110 (60-115) mg/dL Lactic Acid (0.5-2.0) mmol/L Calcium 9.1 D (8.4-10.2) mg/dL Total Bilirubin 0.3 (0.0-1.0) mg/dL AST 31 (5-37) U/L ALT 59 H (0-40) U/L Alkaline Phosphatase 98 (39-117) U/L Total Protein 7.9 (6.5-8.0) g/dL Albumin 4.5 (3.5-5.0) g/dL Lipase 16 (8-78) U/L Urine Color Yellow Urine Appearance Clear Urine pH 6.0 (5.0-9.0) Ur Specific [place] 1.025 (1.005-1.025) Urine Protein 30 (1+) H (Neg-Trace) mg/dL Urine Glucose (UA) Negative (Negative) mg/dL Urine Ketones Trace (Negative) mg/dL Urine Blood Trace H (Negative) Urine Nitrite Negative (Negative) Ur Leukocyte Esterase Negative (Negative) Urine RBC 0-2 (0-2) /HPF Urine WBC 0-5 (0-5) /HPF Ur Squamous Epith Cells 0-2 (0-2) /HPF Urine Bacteria None Seen (None Seen) Hyaline Casts 3-5 (0-2) /LPF 10/30/21 10/30/21 Range/Units 18:59 22:50 WBC (4.8-10.8) X10*3/uL RBC (4.60-5.80) X10*6/uL Hgb (14.0-18.0) g/dl Hct (42.0-52.0) % MCV (80.0-98.0) fL MCH (27.0-33.0) pg MCHC (31.0-36.0) g/dl RDW (11.0-16.0) % Plt Count (160-400) X10*3/uL MPV (9.4-12.4) fL Immature Gran % (Auto) (0.0-0.4) % Neut % (Auto) (45-73) % Lymph % (Auto) (20-40) % [place] % (Auto) (2-11) % Eos % (Auto) (0-4) % Baso % (Auto) (0-2) % Lymph # (Auto) (1.2-4.9) X10*3/uL [place] # (Auto) (0.1-1.2) X10*3/uL Eos # (Auto) (0.0-0.4) X10*3/uL Baso # (Auto) (0.0-0.2) X10*3/uL Abs Immat Gran (auto) (0.00-0.03) X10*3/uL Absolute Neuts (auto) (2.0-8.3) x10*3/uL Absolute Nucleated RBC (0.0-0.012) X10*3/uL Nucleated RBC % (auto) (0.0-0.2) /100WBC Sodium (135-145) mmol/L Potassium (3.3-5.1) mmol/L Chloride (96-108) mmol/L Carbon Dioxide (22-29) mmol/L Anion Gap (12-20) BUN (9-16) mg/dL Creatinine (0.5-1.4) mg/dL Estim Creat Clear Calc Estimated GFR Random Glucose (60-115) mg/dL Lactic Acid 1.7 (0.5-2.0) mmol/L Calcium (8.4-10.2) mg/dL Total Bilirubin (0.0-1.0) mg/dL AST (5-37) U/L ALT (0-40) U/L Alkaline Phosphatase (39-117) U/L Total Protein (6.5-8.0) g/dL Albumin (3.5-5.0) g/dL Lipase (8-78) U/L Urine Color Yellow Urine Appearance Clear Urine pH 6.5 (5.0-9.0) Ur Specific [place] <= 1.005 (1.005-1.025) Urine Protein Negative (Neg-Trace) mg/dL Urine Glucose (UA) Negative (Negative) mg/dL Urine Ketones Negative (Negative) mg/dL Urine Blood Trace H (Negative) Urine Nitrite Negative (Negative) Ur Leukocyte Esterase Negative (Negative) Urine RBC 6-10 H (0-2) /HPF Urine WBC 0-5 (0-5) /HPF Ur Squamous Epith Cells 0-2 (0-2) /HPF Urine Bacteria None Seen (None Seen) Hyaline Casts 0-2 (0-2) /LPF Imaging Data CT scan - abdomen: Attestation: I personally reviewed and interpreted this imaging study as follows: Radiologist's impression: FINDINGS: LUNG BASES: The visualized lung bases are unremarkable.? LIVER, GALLBLADDER, AND BILIARY TREE: Changes of diffuse hepatic steatosis. No focal lesion. No biliary ductal dilatation. The gallbladder is unremarkable with no evidence of radiopaque gallstones, gallbladder wall thickening, or obvious pericholecystic inflammatory changes.? PANCREAS: Unremarkable.? SPLEEN: Unremarkable.? ADRENAL GLANDS: Unremarkable.? KIDNEYS AND URETERS: 6 mm nonobstructing left lower pole calyceal stone. On the right, there is mild fullness of the urinary collecting system down to the level distal ureter where there is a 2 mm ureteral stone suspected. No additional findings.? BLADDER: Grossly normal.? GASTROINTESTINAL TRACT: The small and large bowel are unremarkable. The appendix is unremarkable.? ABDOMINAL WALL: No significant hernia is appreciated.? LYMPH NODES: Normal. VASCULAR: Unremarkable. PELVIC VISCERA: Unremarkable.? OSSEOUS STRUCTURES: Unremarkable.? CT/CT abdomen pelvis wo IV con IMPRESSION: ? 1. 2 mm minimally obstructing right ureteral stone. 2. Nonobstructing left intrarenal 6 mm stone.? ? Fleischner guidelines were followed. Discharge Plan Discharge Clinical Impression: Urinary tract obstruction by kidney stone Patient Disposition: Home, Self-Care Instructions: Kidney Stones (ED) Additional Instructions: You were evaluated for lower back pain radiating to your right lower quadrant of the abdomen on palpation. CT scan indicates right-sided obstructing kidney stone, and a kidney stone to the left kidney. Please take Flomax 0.4 mg daily for the next 30 days. Take prednisone 20 mg daily for the next 3 days. Start this medication on 10/31/2021. Take Motrin 600 mg every 6 hours as needed for pain management. Your next dose is due at 02:00. Take Tylenol 650 mg every 6 hours as needed for pain management fever control. Take this medication at 05:00. Write down what time you take these medications to prevent accidental overdose. I have given you a prescription for oxycodone. Take this medication only at night. This medication is a narcotic and has high risk for addiction and abuse. Do not drive or operate machinery while taking this medication. This medication can delay reaction time, cause drowsiness, and increased risk for falls. This medication is constipating. Please drink plenty of fluids. I prescribed Zofran. Please take this medication as needed for nausea and vomiting. This medication is also under the tongue. Please drink copious amounts of water. Alternate each glass of water with half water have Pedialyte in your glass. Follow-up with Dr. Argueta. Please call and request an appointment. A phone number has been given to you. If your symptoms worsen please return to the emergency department. Thank you for choosing this emergency department for evaluation. Please follow-up with primary care physician as needed. Return to the emergency department for any new, concerning, or worsening symptoms. Prescriptions: New prednisone 20 mg tablet 20 mg PO DAILY 3 Days Qty: 3 0RF tamsulosin [Flomax] 0.4 mg capsule 0.4 mg PO DAILY 30 Days Qty: 30 0RF oxycodone 5 mg tablet 5 mg PO BEDTIME PRN (Reason: pain) Qty: 3 0RF Rx Instructions: Partial Fill upon patient request. Obstructing kidney stone ondansetron 4 mg tablet,disintegrating 4 mg PO Q6H PRN (Reason: nausea and vomiting) Qty: 10 0RF Referrals: Parish Argueta MD [Physician] - 1 day (Obstructing kidney stone) Stand Alone Forms: Work/School Release Interventions: ED Discharge Assessment Last Done: 10/31/21 01:09 Discharge Date/Time: 10/31/21 00:45
--- NOTE | 2021-10-30 18:46 | PHA.MEDREC ---
Pharmacy Consult ? Medication Reconciliation Pharmacy has completed the medication reconciliation.
[2021-10-30 19:16] LABS: Lactic Acid 1.7 mmol/L (0.5-2.0)
[2021-10-30 19:22] LABS: Alanine Aminotransferase 59 U/L (0-40); Albumin Level 4.5 g/dL (3.5-5.0); Alkaline Phosphatase 98 U/L (39-117); Anion Gap 15 (12-20); Aspartate Amino Transferase 31 U/L (5-37); Bilirubin Total 0.3 mg/dL (0.0-1.0); Blood Urea Nitrogen 11 mg/dL (9-16); Calcium 9.1 mg/dL (8.4-10.2); Carbon Dioxide 24 mmol/L (22-29); Chloride 107 mmol/L (96-108); Estimated Glomerular Filt Rate > 60; Glucose Random 110 mg/dL (60-115); Lipase 16 U/L (8-78); Potassium 4.6 mmol/L (3.3-5.1); Sodium 141 mmol/L (135-145); Total Protein 7.9 g/dL (6.5-8.0)
[2021-10-30] MEDS: methylPREDNISolone Sod Succ 125 MG/2 ML VIAL 60 MG IVPUSH (20:36)
[2021-10-30 20:37] VITALS: BP 145/95; PULSE 91; RESP 16; TEMP 36.6; O2SAT 100
[2021-10-30] MEDS: Furosemide 20 MG/2 ML VIAL IVPUSH (20:37)
[2021-10-30] MEDS: Tamsulosin HCL 0.4 MG CAPSULE PO (20:37)
[2021-10-30] MEDS: diphenhydrAMINE HCL 50 MG/ML VIAL 25 MG IVPUSH (22:25)
[2021-10-30] MEDS: Metoclopramide HCl 10 MG/2 ML VIAL IVPUSH (22:25)
[2021-10-30] MEDS: Morphine Sulfate 4 MG/ML CARTRIDGE IVPUSH (22:26)
[2021-10-30 22:54] VITALS: BP 172/110; PULSE 98; RESP 16; TEMP 36.6; O2SAT 97
[2021-10-30 22:55] LABS: Appearance Urine Clear; Color Urine Yellow; Glucose Urine UA Negative (Negative); Leukocyte Esterase Urine Negative (Negative); Nitrite Urine Negative (Negative); PH 6.5 (5.0-9.0); Specific Gravity - Urine <= 1.005 (1.005-1.025); Urine Blood Trace (Negative); Urine Ketones Negative (Negative); Urine Protein Negative (Neg-Trace)
[2021-10-30 22:58] LABS: Bacteria Urine None Seen (None Seen); Hyaline Casts Urine 0-2 /LPF (0-2); Squamous Epithelial Cell Urine 0-2 /HPF (0-2); WBC Urine 0-5 /HPF (0-5)
[2021-10-31 00:32] VITALS: BP 130/88; PULSE 100; RESP 18; O2SAT 96
== END 2021-10-31 00:45 | disposition home or self-care (01) ==
PROVIDERS: Nurse Practitioner Family; Emergency Provider Emergency Medicine; PCP Family Medicine
DX: N13.9 Obstructive and reflux uropathy, unspecified (principal); M54.50 Low back pain, unspecified; R11.2 Nausea with vomiting, unspecified; Z79.899 Other long term (current) drug therapy
CPT/HCPCS: 36415; 74176; 80053; 81001; 83605; 83690; 85025; 87040; 96361; 96374; 96375; 99285; J0696; J1200; J1885; J1940; J2270; J2405; J2765; J2930

== ENCOUNTER 2021-11-01 13:21 | Emergency (ER) | payer MEDICAID, SELFPAY ==
--- NOTE | ~2021-11-01 | CT_ITS ---
EXAMINATION: CT ABDOMEN AND PELVIS WITHOUT CONTRAST CLINICAL INFORMATION: Flank pain COMPARISON: 10/30/2021 TECHNIQUE: Multidetector volumetric imaging was performed from the superior aspect of the liver through the pubic symphysis. Sagittal and coronal reformatted images were obtained on the technologist's workstation. This CT examination was performed using dose optimization techniques as appropriate, variously including the following: *Automated exposure control *Adjustment of mA and/or kV according to patient size (this includes techniques or standardized protocols for targeted exams where dose is matched to indication/reason for exam; i.e. extremities or head) *Use of iterative reconstruction technique DLP: 1202 mGy-cm FINDINGS: LUNG BASES: The visualized lung bases are unremarkable. LIVER, GALLBLADDER, AND BILIARY TREE: Changes of diffuse hepatic steatosis. No biliary ductal dilatation. The gallbladder is unremarkable with no evidence of radiopaque gallstones, gallbladder wall thickening, or obvious pericholecystic inflammatory changes. PANCREAS: Unremarkable. SPLEEN: Unremarkable. ADRENAL GLANDS: Unremarkable. KIDNEYS AND URETERS: Persistent right-sided obstruction due to a tiny now left distal UVJ calculus measuring up to 2 mm to 3 mm which is now within the intramural segment of the distal ureter at the level the bladder. Nonobstructing intrarenal calculus measuring 6 mm in the left again noted. No new findings. No perinephric collection. Mild perinephric haziness on the right noted. BLADDER: Unremarkable. GASTROINTESTINAL TRACT: The small and large bowel are unremarkable. The appendix is unremarkable. ABDOMINAL WALL: Small fat-containing umbilical hernia. LYMPH NODES: Normal. VASCULAR: Unremarkable. PELVIC VISCERA: Unremarkable. OSSEOUS STRUCTURES: Unremarkable. CT/CT abdomen pelvis wo IV con IMPRESSION: Further progression of the small right distal ureteral stone to the level of the bladder as above. Continued mild obstruction. Fleischner guidelines were followed.
[2021-11-01 13:36] VITALS: BP 161/117; PULSE 90; RESP 16; TEMP 36.4; BMI 48.2
[2021-11-01 14:09] LABS: MANUAL DIFF FLAG NO
[2021-11-01 14:10] LABS: Basophils Percent Auto 0.1 % (0-2); Eosinophils Percent Auto 0.1 % (0-4); Hematocrit 40.7 % (42.0-52.0); Hemoglobin 13.2 g/dl (14.0-18.0); Imm Gran Abs Auto 0.05 X10*3/uL (0.00-0.03); Imm Gran Pct Auto 0.4 % (0.0-0.4); Lymphocytes Absolute Auto 1.7 X10*3/uL (1.2-4.9); Lymphocytes Percent Auto 12.9 % (20-40); Mean Corpuscular HGB Conc 32.4 g/dl (31.0-36.0); Mean Corpuscular Hemoglobin 26.2 pg (27.0-33.0); Mean Corpuscular Volume 80.9 fL (80.0-98.0); Mean Platelet Volume 8.9 fL (9.4-12.4); Monocytes Percent Auto 7.5 % (2-11); Neutrophils Absolute Auto 10.6 x10*3/uL (2.0-8.3); Platelet Count 375 X10*3/uL (160-400); Red Blood Count 5.03 X10*6/uL (4.60-5.80); Red Cell Distribution Width 13.7 % (11.0-16.0); White Blood Count 13.4 X10*3/uL (4.8-10.8)
[2021-11-01 14:29] LABS: Alanine Aminotransferase 42 U/L (0-40); Albumin Level 4.2 g/dL (3.5-5.0); Alkaline Phosphatase 85 U/L (39-117); Anion Gap 16 (12-20); Aspartate Amino Transferase 22 U/L (5-37); Bilirubin Total 0.4 mg/dL (0.0-1.0); Blood Urea Nitrogen 16 mg/dL (9-16); Calcium 8.7 mg/dL (8.4-10.2); Carbon Dioxide 24 mmol/L (22-29); Chloride 103 mmol/L (96-108); Creatinine Clr Calc Pharmacy 102.7; Estimated Glomerular Filt Rate > 60; Glucose Random 90 mg/dL (60-115); Potassium 3.8 mmol/L (3.3-5.1); Sodium 139 mmol/L (135-145); Total Protein 7.5 g/dL (6.5-8.0)
[2021-11-01 18:00] VITALS: BP 147/95; PULSE 83; RESP 16; TEMP 36.8; O2SAT 98
[2021-11-01 18:30] LABS: COVID-19 Test Negative (Negative)
[2021-11-01] MEDS: 0.9 % Sodium Chloride 1,000 ML 999 ML IV (18:59)
[2021-11-01] MEDS: Ketorolac Tromethamine 30 MG/ML VIAL 15 MG IVPUSH (18:59)
--- NOTE | 2021-11-01 19:00 | PC.NURSE ---
20 ga iv inserted r la iv in L ac hadnfailed at approx 1700
--- NOTE | 2021-11-01 19:12 | PC.NURSE ---
report received from dasha RN - pt resting comfortably on stretcher. received iv toradol and iv fluids currently running. will continue to monitor
[2021-11-01 20:00] VITALS: BP 140/87; PULSE 82; RESP 16; TEMP 36.8; O2SAT 98
[2021-11-01 20:07] LABS: Appearance Urine Clear; Color Urine Yellow; Glucose Urine UA Negative (Negative); Leukocyte Esterase Urine Negative (Negative); Nitrite Urine Negative (Negative); Specific Gravity - Urine 1.015 (1.005-1.025); Urine Blood Moderate (2+) (Negative); Urine Ketones Negative (Negative); Urine Protein Negative (Neg-Trace)
[2021-11-01 20:15] LABS: Bacteria Urine None Seen (None Seen); Hyaline Casts Urine 0-2 /LPF (0-2); RBC Urine >20 /HPF (0-2); Squamous Epithelial Cell Urine 0-2 /HPF (0-2); WBC Urine 0-5 /HPF (0-5)
--- NOTE | 2021-11-01 20:38 | ED.ABDPAIN ---
HPI - Abdominal Pain General Chief Complaint: Abdominal Pain Stated Complaint: Flank Pain Time Seen by Provider: 11/01/21 17:40 Source: patient Mode of arrival: EMS History of Present Illness HPI narrative: 21-year-old male with history of renal colic and was seen here on Thursday for similar symptoms as today with excruciating right flank pain, nausea, vomiting as well as chills and states he has a had bowel movement for 4 days. He denies any urinary symptoms. Related Data Previous Rx's Medication Instructions Recorded ondansetron 4 mg disintegrating 4 mg PO Q6H PRN nausea and 10/30/21 tablet vomiting #10 tabs oxycodone 5 mg tablet 5 mg PO BEDTIME PRN pain #3 tabs 10/30/21 prednisone 20 mg tablet 20 mg PO DAILY 3 days #3 tabs 10/30/21 tamsulosin 0.4 mg capsule (Flomax) 0.4 mg PO DAILY 30 days #30 caps 10/30/21 cefuroxime axetil 250 mg tablet 250 mg PO Q12H 3 days #6 tabs 11/01/21 ketorolac 10 mg tablet 10 mg PO Q6H PRN pain 5 days #20 11/01/21 tabs Allergies Allergy/AdvReac Type Severity Reaction Status Date / Time No Known Allergies Allergy Verified 04/24/21 19:37 [No Known Allergies*] Review of Systems Review of Systems Pertinent positives and negatives as stated in HPI 10 point review of systems otherwise negative. PMFSH Past Medical History Source: nursing notes reviewed Medical History Asthma Social History Social History Alcohol intake: never Patient Tobacco Use Status: Never used Tobacco Advance Directives: No Advance Directives Information Provided: Yes Physical Exam ED Vital Signs: Vital Signs - 24 hr 11/01/21 13:36 11/01/21 18:00 11/01/21 20:00 Temperature 97.6 F 98.2 F 98.2 F Pulse Rate 90 83 82 Respiratory Rate 16 16 16 Blood Pressure 161/117 H 147/95 H 140/87 H Pulse Oximetry 98 98 Oxygen Delivery Method Room Air Room Air Room Air BMI result Body Mass Index 48.2 VITAL SIGNS: Reviewed. GENERAL: Well developed, well nourished, in moderate distress. HEAD: Normocephalic/atraumatic EYES: PERRLA, EOMI EARS: Ext canals without abnormality OROPHARYNX: no oral lesions noted, posterior pharynx clear LUNGS: Normal breath sounds. No adventitious sounds or accessory muscle use. SpO2<98> CARDIOVASCULAR: Regular rate and rhythm without noted murmurs ABDOMEN: Soft, pain at right flank, non-distended with bowel sounds. MUSCULOSKELETAL: No tenderness, deformities, or effusions noted on gross inspection. EXTREMITIES: No cyanosis, clubbing or edema. SKIN: Inspection of the skin reveals no rashes NEUROLOGIC: Alert and oriented x 4. Strength and sensation to light touch were grossly intact x 4. Course Course Course Narrative: 21-year-old male with history and clinical presentation consistent with renal colic and obstructive uropathy. Patient is currently on Flomax as well as antibiotics but states he is not getting good pain control from the medication that he was sent home with. Patient was given 2L IV fluids and on review of his lab work was noted to have mild CARLOS with a creatinine-1.44. Patient has received excellent pain control with the Toradol and is currently asymptomatic and on review of CT scan the stone has shifted. All results and findings discussed with the patient at bedside. He is otherwise hemodynamically stable and he will be discharged on a course ketorolac. Leukocytosis that is noted on the lab work is likely secondary to the steroids that patient was started on. Patient has been afebrile in the ER. Repeat BMP within normal limits. MDM - Abdominal Pain Lab Data Result diagrams: 11/01/21 14:05 11/01/21 21:18 Labs: Lab Results 11/01/21 11/01/21 11/01/21 Range/Units 14:05 14:05 18:07 WBC 13.4 H (4.8-10.8) X10*3/uL RBC 5.03 (4.60-5.80) X10*6/uL Hgb 13.2 L (14.0-18.0) g/dl Hct 40.7 L (42.0-52.0) % MCV 80.9 (80.0-98.0) fL MCH 26.2 L (27.0-33.0) pg MCHC 32.4 (31.0-36.0) g/dl RDW 13.7 (11.0-16.0) % Plt Count 375 (160-400) X10*3/uL MPV 8.9 L (9.4-12.4) fL Immature Gran % (Auto) 0.4 (0.0-0.4) % Neut % (Auto) 79.0 H (45-73) % Lymph % (Auto) 12.9 L (20-40) % [place] % (Auto) 7.5 (2-11) % Eos % (Auto) 0.1 (0-4) % Baso % (Auto) 0.1 (0-2) % Lymph # (Auto) 1.7 (1.2-4.9) X10*3/uL [place] # (Auto) 1.0 (0.1-1.2) X10*3/uL Eos # (Auto) 0.0 (0.0-0.4) X10*3/uL Baso # (Auto) 0.0 (0.0-0.2) X10*3/uL Abs Immat Gran (auto) 0.05 H (0.00-0.03) X10*3/uL Absolute Neuts (auto) 10.6 H (2.0-8.3) x10*3/uL Absolute Nucleated RBC 0.000 (0.0-0.012) X10*3/uL Nucleated RBC % (auto) 0.0 (0.0-0.2) /100WBC Sodium 139 (135-145) mmol/L Potassium 3.8 (3.3-5.1) mmol/L Chloride 103 (96-108) mmol/L Carbon Dioxide 24 (22-29) mmol/L Anion Gap 16 (12-20) BUN 16 (9-16) mg/dL Creatinine 1.44 H (0.5-1.4) mg/dL Estim Creat Clear Calc 102.7 Estimated GFR > 60 Random Glucose 90 (60-115) mg/dL Lactic Acid 1.0 (0.5-2.0) mmol/L Calcium 8.7 (8.4-10.2) mg/dL Total Bilirubin 0.4 (0.0-1.0) mg/dL AST 22 (5-37) U/L ALT 42 H (0-40) U/L Alkaline Phosphatase 85 (39-117) U/L Total Protein 7.5 (6.5-8.0) g/dL Albumin 4.2 (3.5-5.0) g/dL Urine Color Urine Appearance Urine pH (5.0-9.0) Ur Specific [place] (1.005-1.025) Urine Protein (Neg-Trace) mg/dL Urine Glucose (UA) (Negative) mg/dL Urine Ketones (Negative) mg/dL Urine Blood (Negative) Urine Nitrite (Negative) Ur Leukocyte Esterase (Negative) Urine RBC (0-2) /HPF Urine WBC (0-5) /HPF Ur Squamous Epith Cells (0-2) /HPF Urine Bacteria (None Seen) Hyaline Casts (0-2) /LPF COVID-19 (YANN) (Negative) COVID-19 Clin Com 11/01/21 11/01/21 11/01/21 Range/Units 18:07 19:54 21:18 WBC (4.8-10.8) X10*3/uL RBC (4.60-5.80) X10*6/uL Hgb (14.0-18.0) g/dl Hct (42.0-52.0) % MCV (80.0-98.0) fL MCH (27.0-33.0) pg MCHC (31.0-36.0) g/dl RDW (11.0-16.0) % Plt Count (160-400) X10*3/uL MPV (9.4-12.4) fL Immature Gran % (Auto) (0.0-0.4) % Neut % (Auto) (45-73) % Lymph % (Auto) (20-40) % [place] % (Auto) (2-11) % Eos % (Auto) (0-4) % Baso % (Auto) (0-2) % Lymph # (Auto) (1.2-4.9) X10*3/uL [place] # (Auto) (0.1-1.2) X10*3/uL Eos # (Auto) (0.0-0.4) X10*3/uL Baso # (Auto) (0.0-0.2) X10*3/uL Abs Immat Gran (auto) (0.00-0.03) X10*3/uL Absolute Neuts (auto) (2.0-8.3) x10*3/uL Absolute Nucleated RBC (0.0-0.012) X10*3/uL Nucleated RBC % (auto) (0.0-0.2) /100WBC Sodium 140 (135-145) mmol/L Potassium 4.1 (3.3-5.1) mmol/L Chloride 105 (96-108) mmol/L Carbon Dioxide 25 (22-29) mmol/L Anion Gap 14 (12-20) BUN 14 (9-16) mg/dL Creatinine 1.28 (0.5-1.4) mg/dL Estim Creat Clear Calc 115.5 Estimated GFR > 60 Random Glucose 76 (60-115) mg/dL Lactic Acid (0.5-2.0) mmol/L Calcium 8.6 (8.4-10.2) mg/dL Total Bilirubin (0.0-1.0) mg/dL AST (5-37) U/L ALT (0-40) U/L Alkaline Phosphatase (39-117) U/L Total Protein (6.5-8.0) g/dL Albumin (3.5-5.0) g/dL Urine Color Yellow Urine Appearance Clear Urine pH 7.0 (5.0-9.0) Ur Specific [place] 1.015 (1.005-1.025) Urine Protein Negative (Neg-Trace) mg/dL Urine Glucose (UA) Negative (Negative) mg/dL Urine Ketones Negative (Negative) mg/dL Urine Blood Moderate (2+) H (Negative) Urine Nitrite Negative (Negative) Ur Leukocyte Esterase Negative (Negative) Urine RBC >20 H (0-2) /HPF Urine WBC 0-5 (0-5) /HPF Ur Squamous Epith Cells 0-2 (0-2) /HPF Urine Bacteria None Seen (None Seen) Hyaline Casts 0-2 (0-2) /LPF COVID-19 (YANN) Negative (Negative) COVID-19 Clin Com See Note Discharge Plan Discharge Clinical Impression: Renal colic, Ureterolithiasis, CARLOS (acute kidney injury) Patient Disposition: Home, Self-Care Instructions: Renal Colic (ED), Ureteral Stones (ED) Additional Instructions: 1. Tylenol 1000 mg, orally, every 6 hours as needed for pain control. Do not exceed 4000 mg within 24 hours. 2. Continue to drink plenty of water and avoid caffeinated/carbonated beverages. 3. Resume the remaining course of medications that you are prescribed on Thursday Return to the ER for worsening symptoms. Prescriptions: New cefuroxime axetil 250 mg tablet 250 mg PO Q12H 3 Days Qty: 6 0RF ketorolac 10 mg tablet 10 mg PO Q6H PRN (Reason: pain) 5 Days Qty: 20 0RF Rx Instructions: Patient received Toradol in the emergency room. No Action prednisone 20 mg tablet 20 mg PO DAILY 3 Days Qty: 3 0RF tamsulosin [Flomax] 0.4 mg capsule 0.4 mg PO DAILY 30 Days Qty: 30 0RF oxycodone 5 mg tablet 5 mg PO BEDTIME PRN (Reason: pain) Qty: 3 0RF Rx Instructions: Partial Fill upon patient request. Obstructing kidney stone ondansetron 4 mg tablet,disintegrating 4 mg PO Q6H PRN (Reason: nausea and vomiting) Qty: 10 0RF
[2021-11-01 21:42] LABS: Anion Gap 14 (12-20); Blood Urea Nitrogen 14 mg/dL (9-16); Calcium 8.6 mg/dL (8.4-10.2); Carbon Dioxide 25 mmol/L (22-29); Chloride 105 mmol/L (96-108); Creatinine Clr Calc Pharmacy 115.5; Estimated Glomerular Filt Rate > 60; Glucose Random 76 mg/dL (60-115); Potassium 4.1 mmol/L (3.3-5.1); Sodium 140 mmol/L (135-145)
[2021-11-01 21:50] VITALS: BP 142/90; PULSE 82; RESP 16; TEMP 36.8; O2SAT 98
== END 2021-11-01 21:58 | disposition home or self-care (01) ==
PROVIDERS: Emergency Provider Student in an Organized Health Care Education/Training Program
DX: N23 Unspecified renal colic (principal); N20.1 Calculus of ureter; Z20.822 Contact with and (suspected) exposure to COVID-19; Z79.899 Other long term (current) drug therapy
CPT/HCPCS: 36415; 74176; 80048; 80053; 81001; 81003; 83605; 85025; 87040; 87635; 96361; 96374; 99284; J1885

== ENCOUNTER → 2022-10-21 12:40 | Outpatient (REF) | payer MEDICAID, SELFPAY | LOC: HO.SL 12:40 | PROVIDERS: PCP Registered Nurse; Visit Provider Registered Nurse | DX: G47.33 Obstructive sleep apnea (adult) (pediatric) (principal) | CPT/HCPCS: 95806 ==

== ENCOUNTER → 2022-10-21 19:00 | Outpatient (BNV) | payer MEDICAID, SELFPAY | PROVIDERS: PCP Registered Nurse; Visit Provider Internal Medicine | DX: G47.33 Obstructive sleep apnea (adult) (pediatric) (principal) | CPT/HCPCS: 95806 ==

== ENCOUNTER → 2023-07-22 11:16 | Outpatient (BNVA) | payer SELFPAY | PROVIDERS: PCP Registered Nurse; Visit Provider Physician Assistant Medical | DX: Z02.79 Encounter for issue of other medical certificate (principal) ==

== ENCOUNTER 2024-12-30 15:05 | Outpatient (AMB) | payer OTHER, SELFPAY ==
--- NOTE | 2024-12-30 15:19 | A.OFFPC_ITS ---
Vital Signs 12/30/24 15:23 Height 5 ft 6.14 in Weight 286 lb 9 oz BMI 46.1 BP 131/79 Blood Pressure Location Rt brachial Position Sitting Respiration 16 Pulse 76 Pulse Source Pulse Oximeter Temp 97.8 F Temp Source Oral Pulse Oximetry (%) 97 Oxygen Delivery Method Room Air Intake Visit Reasons: FAMILY PRACTICE PHYSICIAN - Establish Care Lapidary Apprentice Required: No Accompanied by: Self / Same As Patient Allergies No Known Allergies (No Known Allergies*) Allergy (Verified 12/30/24 15:20) Tobacco use date assessed: 12/30/24 Dental Screening Dental Screen Date: 12/30/24 Did you have a dental visit in the last 12 months?: No Did you have a dental problem in the last 6 months where you did not have access to dental care?: No Was dental information given to patient?: Patient has dentist HPI HPI Comments History of Present Illness Details History of Present Illness The patient is a 24-year-old male presenting for an initial visit to establish care with a primary care provider. Nephrolithiasis: The patient has a history of kidney stones dating back a couple of years, which began with pain in his right side. He reports he passed two stones spontaneously that were smaller than a dime. A CT scan from 2021 showed a non-obstructive 2-3 mm left distal UVJ calculus and suggested stones on the right side as well. He has seen a social services specialist but feels he has not received a deep analysis of his kidney health and remains very concerned about potential long-term issues like dialysis. Proteinuria: The patient reports he started leaking protein after his episode of kidney stones, a problem that has not resolved. He notes that every time he urinates, he sees bubbles, which he finds concerning. Hypertension: The patient was diagnosed with hypertension after his kidney stone episode. It is unclear if the hypertension is secondary to his kidney issues or a primary cause. He was previously on an unspecified medication but was taken off due to side effects of his blood pressure going too low. He reports his blood pressure improved after losing weight and taking beetroot supplements. Obesity and Weight Management: The patient's highest weight was 325 pounds at the beginning of the year, and he successfully lost over 40 pounds, getting down to 279 pounds through diet and exercise. He reports his weight has been fluctuating recently but continues his efforts with gym attendance and healthy eating. He is interested in exploring Mounjaro to assist with further weight loss. Mild Obstructive Sleep Apnea: The patient was diagnosed with mild sleep apnea following a sleep study approximately one year ago. A CPAP machine was recommended but not pursued. He denies current symptoms such as snoring, gasping for air at night, or daytime fatigue, and states he sleeps perfectly fine. 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 He notes the condition worsens after a fresh haircut and has had cysts form in the past. Surgical History: - Four wisdom teeth extracted Medications: - Previously on an unspecified antihyper tensive medication, but discontinued due to side effects. - Takes beetroot supplements for blood p ressure. - Takes unspecified supplements for dige stion and bloating. Social History: - Substance Use: Denies smoking and illi cit drug use. - Alcohol: Drinks very rarely. - Exercise: Reports going to the gym. - Diet: Reports he is eating better. - Employment: Works for [employer]. - Marital Status: . Family History: - Mother: History of a stroke from a bra in aneurysm in 2009. - Mother: History of prediabetes, now jasmin Cordova. - Mother: Has an unspecified heart condi tion. - Father: History of prediabetes, now jasmin Cordova. - Father: History of high cholesterol. Diagnostic Results: - Abdomen/Pelvis CT (2021): Revealed a n on-obstructive left distal UVJ calculus measuring 2-3 mm and also noted right-sided nephrolithiasis. - Head CT: Showed mild multilevel degene rative spondyloarthropathy of the spine. - Kidney Ultrasound (in ER): Reported as normal. - Sleep Study (approx. 1 year ago): Diag nosed mild sleep apnea. Past Medical History - Nephrolithiasis (bilateral) - Proteinuria - Hypertension - Mild obstructive sleep apnea - Obesity - Headaches with migraines - Mild degenerative spondyloarthropathy Health Maintenance - The patient is 24 years old and does n ot require screenings such as a colonoscopy at this time. - A comprehensive panel of screening lab s will be ordered to establish a baseline of health. - Discussion held regarding medical weig ht management, including lifestyle modifications and pharmacological options like GLP-1 agonists. [facility] Medical History (Updated 12/30/24 @ 18:05 by Wilian Cordon MD) Folliculitis barbae BLAINE (obstructive sleep apnea) Hypertension Proteinuria Nephrolithiasis Class 2 obesity Asthma Family History (Updated 12/30/24 @ 15:31 by Paul Thompson MA) Father High cholesterol Mother Stroke Brain aneurysm Social History Housing: House Alcohol intake: never Patient Tobacco Use Status: Never used Tobacco service: No Current occupational status: employed Cognitive needs: No Hearing needs: No Vision needs: Yes (rx glasses) Questionnaire PHQ-9 Over the last 2 weeks, how often have you been bothered by any of the following problems? 1. Little interest or pleasure in doing things: several days 2. Feeling down, depressed, or hopeless: several days 3. Trouble falling or staying asleep, or sleeping too much: not at all 4. Feeling tired or having little energy: several days 5. Poor appetite or overeating: not at all 6. Feeling bad about yourself - or that you are a failure or have let yourself or your family down: not at all 7. Trouble concentrating on things, such as reading the newspaper or watching television: several days 8. Moving or speaking so slowly that other people could have noticed. Or the opposite - being so fidgety or restless that you have been moving around a lot more than usual: not at all 9. Thoughts that you would be better off or of hurting yourself in some way: not at all Total score: 4 Source: Developed by Drs. Stan Sun, Aneta Latham, Bari Wilburn and colleagues, with an educational julio from [employer]. Thrive Questionnaire I am a: Patient What is your living situation today?: I have a steady place to live Within the past 12 months, did the food you bought not last and you didn't have the money to get more?: I choose not to answer this question Within the past 12 months, did you worry whether your food would run out before you got money to buy more?: I choose not to answer this question Do you have trouble paying for medicines?: No Do you have trouble getting transportation to medical appointments?: No Do you have trouble paying your heating and electricity bill?: No Do you have trouble taking care of your child, family member or friend?: No Are you currently unemployed and looking for a job?: No Are you interested in more education?: No Please select the resources that you would like help with: None Currently or been in a relationship where the following occur: No concerns reported THRIVE Score: 0 AUDIT C Alcohol Use Questionnaire (AUDIT-C) 1. How often do you have a drink containing alcohol?: Monthly or less 2. How many drinks containing alcohol do you have on a typical day when you are drinking?: 1 or 2 3. How often do you have six or more drinks on one occasion?: Less than monthly Total Score: 2 KEKE-7 AMB Questionnaire KEKE-7 Feeling nervous, anxious, or on edge: 1 = Several days Not being able to stop or control worryin = Nearly every day Worrying too much about different things: 3 = Nearly every day Trouble relaxin = Several days Being so restless that it is hard to sit still: 1 = Several days Becoming easily annoyed or irritable: 2 = More than half the days Feeling afraid as if something awful might happen: 1 = Several days Total KEKE-7 score (0-4 normal; 5-9 mild; 10-14 moderate; 15-21 severe): 12 Source: Developed by Drs. Stan Sun, Aneta Latham, Bari Wilburn and colleagues, with an educational julio from [employer]. Review of Systems Narrative Review of Systems - Constitutional: Reports significant weight loss of over 40 pounds, but recent weight fluctuation. - HEENT/Dermatologic: Reports bumps in the goodman area. - Cardiovascular: Denies symptoms but reports a past cardiac workup for which he never received results. - Sleep: Denies snoring, gasping for air at night, or feeling unrefreshed on waking. - Gastrointestinal: Reports regular bowel movements and denies constipation. - Genitourinary: Reports right-sided flank pain and foamy urine ('bubbles'). - Musculoskeletal: Reports a history of neck and back pain. - Neurological: Reports a history of headaches and migraines. - Extremities: Denies swelling in the lower extremities. 10-point ROS reviewed and negative except as noted in HPI Physical exam (Primary Care) Vital Signs: Last Vital Signs Temp 97.8 F 12/30/24 15:23 Pulse 76 12/30/24 15:23 Resp 16 12/30/24 15:23 BP 131/79 12/30/24 15:23 Pulse Ox 97 12/30/24 15:23 Oxygen Delivery Method Room Air 12/30/24 15:23 BMI result Body Mass Index 46.1 Tobacco/Smoking Status: Tobacco use Status Tobacco use date assessed 12/30/24 12/30/24 15:31 Patient Tobacco Use Status Never used Tobacco 12/30/24 15:20 PHQ-9: PHQ-9 Score PHQ-9: Total score 4 12/30/24 15:20 Currently or been in a relationship where the following occur: No concerns reported Narrative Physical Exam General: Well-appearing, in no acute distress. Vital signs: Blood pressure 131/79, within normal limits. HEENT: Normocephalic, atraumatic. PERRLA, EOMI. Conjunctiva clear, sclera anicteric. Oropharynx clear, mucous membranes moist. TMs intact bilaterally. Neck: Supple, no lymphadenopathy, no thyromegaly, no JVD or carotid bruits. Cardiovascular: RRR, normal S1/S2, no murmurs, rubs, or gallops. Peripheral pulses 2+ and symmetric. No edema. Respiratory: Lungs clear to auscultation bilaterally, no wheezes, rales, or rhonchi. Normal effort. Abdomen: Soft, non-tender, non-distended. Normoactive bowel sounds. No hepatosplenomegaly, no masses. Reports right-side pain, history of kidney stones. MSK: Full range of motion, no joint swelling or deformity. Normal gait. Skin: Warm, dry, intact. No rashes, lesions, or pallor. Pseudofolliculitis barbae noted. Neuro: Alert and oriented x3. Cranial nerves II-XII intact. Strength 5/5 throughout. Sensation intact. Reflexes 2+ symmetric. Normal coordination and gait. Psych: Appropriate mood and affect. Normal judgment and insight. Expresses concern about kidney health. Coding Level of Care Code New Pt Level 4 (49864) Diagnoses Nephrolithiasis N20.0 Proteinuria R80.9 Hypertension I10 Class 2 obesity E66.9 BLAINE (obstructive sleep apnea) G47.33 Folliculitis barbae L73.8 Assessment & Plan Assessment & Plan (1) Nephrolithiasis: Code(s): N20.0 - Calculus of kidney Category: Medical (2) Proteinuria: Code(s): R80.9 - Proteinuria, unspecified Category: Medical (3) Hypertension: Code(s): I10 - Essential (primary) hypertension Category: Medical (4) Class 2 obesity: Code(s): E66.9 - Obesity, unspecified Category: Medical (5) BLAINE (obstructive sleep apnea): Code(s): G47.33 - Obstructive sleep apnea (adult) (pediatric) Category: Medical (6) Folliculitis barbae: Code(s): L73.8 - Other specified follicular disorders Category: Medical Plan Consent Patient was informed and verbally consented to the use of an ambient scribe for clinic note documentation during this visit. Plan 1. Pcp Establishment / Health Maintenance - Comprehensive lab work to be ordered including a complete blood count, comprehensive metabolic panel, urinalysis, electrolytes, calcium, magnesium, thyroid function tests, B12, folate, vitamin D, HIV, hepatitis B, hepatitis C, lipid panel, and a hemoglobin A1c. - A physical exam will be performed. - Schedule a follow-up visit in two weeks to discuss lab results and next steps. 2. Nephrolithiasis / Proteinuria / Hypertension - The ordered CMP and urinalysis will be used to assess current kidney function, which is the patient's primary concern. - Based on the lab results, further workup will be considered, including a potential kidney ultrasound or referrals to nephrology or urology. 3. Obesity And Weight Management - Discussed GLP-1 agonists (e.g., Mounjaro, Ozempic, Zepbound) for weight loss, including the differences between medications, common side effects, and the difficulties with insurance approval and chg-xr-dyectu costs. - Emphasized a comprehensive approach to weight loss, including education on diet and exercise, is necessary before starting medication to ensure long-term success. - A referral will be placed for the medical weight management clinic at [facility]. 4. Pseudofolliculitis Barbae - Educated the patient that the condition is not a fungal infection but is caused by hair curling back into the skin, and can become secondarily infected. - Advised on conservative management: avoid close shaves, use electric clippers, shave with the direction of hair growth, apply warm compresses before shaving, and perform gentle exfoliation. - A prescription for a topical steroid cream will be sent to be used for flare- ups. Discussion Notes I met with this 24-year-old male today for his initial visit to establish primary care. His primary concern is his kidney health, given his history of kidney stones and persistent proteinuria. We will begin with a comprehensive set of baseline labs to get a full overview of his health status, paying close attention to his renal function via CMP and urinalysis. We discussed his interest in Mounjaro for weight management. I provided a detailed explanation of GLP-1 agonists, including the differences between semaglutide and tirzepatide, potential side effects, and the realities of insurance coverage and cost. I emphasized the need for a comprehensive, lifestyle-based approach as the foundation for sustainable weight loss and offered a referral to our medical weight management clinic, which he accepted. I also addressed a skin concern on his face, diagnosing it as pseudofolliculitis barbae and providing extensive counseling on conservative management techniques and when to use the prescribed topical steroid cream. I reassured the patient that we will take a scys-qv-xjgr approach to address his concerns, starting with the lab workup and a follow-up visit in two weeks to review the results and formulate a definitive plan. Patient Instructions - Please go to the lab to have your blood and urine tests done. - For the bumps on your face and neck from shaving: Avoid very close shaves. - Use electric clippers instead of razor blades, and leave the hair slightly longer. - Shave in the direction your hair grows. - You can use warm compresses on the area before shaving and gently exfoliate to help free trapped hairs. - I am sending a prescription for a steroid cream to your pharmacy. - Use this cream on the bumps when the area gets irritated. - We will be sending a referral to the medical weight management clinic for you. - Please schedule a follow-up appointment in two weeks to go over your lab results. Medical Decision Making The patient is a 24-year-old male presenting for establishment of care with multiple chronic concerns, including a history of nephrolithiasis, persistent proteinuria, hypertension, and obesity. His main anxiety is centered on his kidney health. My initial approach is to obtain a comprehensive baseline assessment of his overall health. The decision to order a full panel of labs (CBC, CMP, UA, lipids, A1c, thyroid, vitamins) is to screen for underlying etiologies and comorbidities related to his presenting problems, particularly to evaluate renal function, check for metabolic syndrome, and assess cardiovascular risk factors. These results will guide the next steps, including whether imaging of the kidneys or referral to nephrology is warranted. Regarding his interest in weight loss medication, I believe it is premature to prescribe a GLP-1 agonist without first establishing a comprehensive lifestyle plan and assessing his baseline metabolic health. A referral to the medical weight management clinic is the most appropriate step, providing him with a structured, multidisciplinary approach that is more likely to yield sustainable results and satisfy insurance prerequisites for pharma cotherapy if needed later. Finally, his skin condition was diagnosed as pseudofolliculitis barbae based on clinical history and appearance. The plan to manage this with conservative measures and a topical steroid for flares is a low-risk, first-line approach. The overall goal of this initial visit is to gather data, address immediate concerns, provide education, and establish a therapeutic alliance before embarking on more intensive interventions. Total time spent caring for the patient today was 30 minutes. This includes time spent before the visit reviewing the chart, time spent documenting, and time spent reviewing laboratory results, diagnostic imaging, medications, performing a medically necessary evaluation, counseling on diagnoses, care coordination, ordering appropriate tests, ordering appropriate medications, review of tests performed by other providers, reporting test results with the patient. Orders: Orders Comprehensive Met. Panel Today Z13.9 - Encounter for screening, unspecified Hepatitis B Surface Antibody Today Z13.9 - Encounter for screening, unspecified Hepatitis C Antibody Today Z13.9 - Encounter for screening, unspecified Lipid Panel Today Z13.9 - Encounter for screening, unspecified UA CC w/rflx Micro + Cult Today Z13.9 - Encounter for screening, unspecified Vitamin D 1,25 dihydroxy Today Z13.9 - Encounter for screening, unspecified Microalbumin, Random (w Creat) Today Z13.9 - Encounter for screening, unspecified Complete Blood Count Auto Diff Today Z13.9 - Encounter for screening, unspecified Hemoglobin A1c Today Z13.9 - Encounter for screening, unspecified Hepatitis B Surface Antigen Today Z13.9 - Encounter for screening, unspecified HIV Ab/Ag Today Z13.9 - Encounter for screening, unspecified Magnesium Today Z13.9 - Encounter for screening, unspecified Vitamin B12 and Folate Today Z13.9 - Encounter for screening, unspecified Referrals Medical Weight Management Referral E66.9 - Obesity, unspecified
[2024-12-30 15:23] VITALS: BP 131/79; PULSE 76; RESP 16; TEMP 36.6; O2SAT 97; BMI 46.1
--- OUTSIDE RECORDS SUMMARY | 2024-12-30 15:24 | XMS_ITS | Encounter Summary ---
Author Organization [facility] Address [address] [place] [phone] Phone Care Team Providers Care Lodge Officer Name Role Phone Christopher Dwyer MD Primary Care Provider [phone] Encounter Details Date Type Department Care Team (Late st Contact Info) Description 10/16/2016 Conversion Encounter [facility] [address] [place] [address] Social History Tobacco Use Types Packs/Day Years Used Date Smoking Tobacco: Never Assessed Sex and Gender Information Value Date Recorded Sex Assigned at Not on file Legal Sex Male 4:40 PM EDT Gender Identity Not on file Sexual Orientation Not on file documented as of this encounter Plan of Treatment Not on file documented as of this encounter Visit Diagnoses Not on filedocumented in this encounter Care Teams Lodge Officer Relationship Specialty Start Date End Date Christopher Dwyer MD [address] [place] [address] PCP - General 10/10/16 08/06/22 documented as of this encounter
--- OUTSIDE RECORDS SUMMARY | 2024-12-30 15:24 | XMS_ITS | Encounter Summary ---
Author Organization [facility] Address [address] [place] [phone] Phone Care Team Providers Care Pharmaceutical Physician Name Role Phone Christopher Dwyer MD Primary Care Provider Encounter Details Date Type Department Care Team (Late st Contact Info) Description 07/24/2009 Documentation [facility] Family [facility] [address] [place] [address] Family Medicine, Physician [address] [place], [place] [id number] Social History Tobacco Use Types Packs/Day Years [...] on filedocumented in this encounter Care Teams Pharmaceutical Physician Relationship Specialty Start Date End Date Christopher Dwyer MD [address] [place] [address] BREANNA Felder [id number] PCP - General 10/10/16 08/06/22 documented as of this encounter
--- OUTSIDE RECORDS SUMMARY | 2024-12-30 15:24 | XMS_ITS | Encounter Summary ---
Author Organization [facility] Address [address] [place] [phone] Phone Care Team Providers Care Power Washer Name Role Phone Christopher Dwyer MD Primary Care Provider Encounter Details Date Type Department Care Team (Late st Contact Info) Description 12/21/2013 Documentation [facility] Family Medicine [address] [place] [address] Family Medicine, Physician [address] [place] [address] Social History Tobacco Use Types Packs/Day Years [...] on filedocumented in this encounter Care Teams Power Washer Relationship Specialty Start Date End Date Christopher Dwyer MD [address] [place] [address] BREANNA Felder [id number] PCP - General 10/10/16 08/06/22 documented as of this encounter
--- OUTSIDE RECORDS SUMMARY | 2024-12-30 15:24 | XMS_ITS | Clinical Summary ---
Author Organization [facility] Address [address] [place] [address] Phone Care Team Providers Care Bioinformatics Software Engineer Name Role Phone Unavailable Primary Care Provider Unavailabl e Immunizations Immunization Administration Dates Next Due DTaP 5 05/21/2005, 2,02/11/2001,2000 ,2000 H1N1 07/09/2009,01/04/2009 HPV, Quadrivalent 02/09/2013,12/08/2012 Hep B, ped/adol 02/11/2001,2000,2000 Hib (PRP-T) 12/27/2001,02/11/2001,2000 ,2000 IPV 05/21/2005,12/27/2001,2000 ,2000 Influenza Split 12/08/2012,05/13/2010,11/22/2009 Influenza, injectable, trivalent 009,01/04/2008,02/04/2006,02/09/2002 ,12/27/2001 MMR 05/21/2005,08/05/2001 Pneumococcal Conjugate 04/30/2004,02/11/2001,12/2000,2000 Tdap 06/20/2011 Varicella 01/04/2008,08/05/2001 Family History Relation Name Status Comments Father Alive Father: Asthma Mother Maternal side: Diabetes mellitus Other Family history of *Thrombophilia, Family history of *Dental caries, Family history of Seizure disorder, Family history of Cancer, prostate, Family history of ADD/ADHD, Family history of Obesity Sister Alive Sister: Heart d isease Social History Tobacco Use Types Packs/Day Years Used Date Smoking Tobacco: Never Assessed Sex and Gender Information Value Date Recorded Sex Assigned at Not on file Legal Sex Male 4:40 PM EDT Gender Identity Not on file Sexual Orientation Not on file Last Filed Vital Signs Vital Sign Reading Time Taken Comments Blood Pressure 128/80 12/08/2012 12:00 AM EDT Pulse - - Temperature - - Respiratory Rate - - Oxygen Saturation - - Inhaled Oxygen Concentration - - Weight 80.3 kg (177 lb) 12/08/2012 12:00 AM EDT Height 155.6 cm (5' 1.25 ) 12/08/2012 12:00 AM E DT Body Mass Index 33.17 12/08/2012 12:00 AM EDT Plan of Treatment Health Maintenance Due Date Last Done Comments HPV Vaccines (3 - Male 2-dose series) 06/08/2013 02/09/2013, 12/08/2012 DTaP,Tdap,and Td Vaccines (7 - Td or Tdap) 06/19/2021 06/20/2011, 05/21/2005, 02/09/2002, Additional history exists Influenza Vaccines (#1) 2024 12/09/19 13, 05/13/2010, 11/22/2009, Additional history exists COVID-19 Vaccine ( season) 2024 Hepatitis B Vaccines Completed 02/11/2001, 2000, 2000 HIB Vaccines Completed 12/27/2001, 01/30, 2000, Additional history exists Pneumococcal Vaccine Completed 04/30/2004, 02/11/2001, 2000, Additional history exists IPV Vaccines Completed 05/21/2005, 12/01, 2000, Additional history exists MMR Vaccines Completed 05/21/2005, 08/05/2001 Varicella Vaccines Completed 01/04/2008, 08/05/2001 Hepatitis A Vaccines Aged Out No long er eligible based on patient's age to complete this topic Men B Vaccine Aged Out No longer elig ible based on patient's age to complete this topic Meningococcal Vaccine Aged Out No zach carmenza eligible based on patient's age to complete this topic
--- OUTSIDE RECORDS SUMMARY | 2024-12-30 15:24 | XMS_ITS | Clinical Summary ---
Author Organization [employer] Address [address] [facility] [address] [place] [address] Care Team Providers Care Sailing Officer Name Role Phone Ivleisse Dean MD Primary Care Pro vider Allergies Active Allergy Reactions Criticality Noted Date Comments Sumatriptan 08/09/2018 Other reaction(s): dizziness, vomiting, burning all over Topiramate Diarrhea 10/06/2023 Medications albuterol (Ventolin HFA) 108 (90 Base) MCG/ACT inhaler Inhale 2 puffs 4 times a day as needed 2 Active loratadine (Claritin) 10 MG tablet 1 tablet by oral route every day prn allergy symptoms 0 Active Blood Pressure kitIndications:El evated blood pressure reading in office without diagnosis of hypertension Check blood pressure 1-2 times daily 1 kit 2 Active Active Problems Problem Noted Date Diagnosed Date Healthcare maintenance 10/06/2023 Morbid obesity (CMS/HCC) 10/06/2023 BLAINE (obstructive sleep apnea) 10/06/2023 Fertility testing 10/06/2023 Elevated blood pressure read ing in office without diagnosis of hypertension 08/13/2022 Assessment & Plan (08/13/2022 4:36 PM EDT): 138/88 BP before leaving. Sleep study ordered. Gave dash diet handout. Counseled low-salt diet (explained sodium chloride NaCl on ingredients is salt), advised increase in exercise to 30 min/ day most days, weight loss if applicable. Call clinic for high BP >170/90 or low <90/60. Patient started intermittent fasting 2 months ago. Explains that he is working out now. It seems that Dillon is taking his health seriously. He is followed by Nephrology for his proteinuria and has a nephrology appointment on 10/07/22. F/up with PCP for BP in 2 months. Proteinuria 04/03/2022 Migraine without aura, not refractory 02/25/2022 Attention deficit hyperactivity disorder 019 Mild intermittent asthma 01/07/2017 Resolved Problems Problem Noted Date Diagnosed Date Resolved Date Class 3 severe obesity due t o excess calories without serious comorbidity with body mass index (BMI) of 50.0 to 59.9 in adult 08/13/202208/2023 Immunizations Immunization Administration Dates Next Due DTaP, 5 pertussis antigens 05/21/2005,,02/11/2001,12/10,2000 HPV 9-Valent 11/15/2014,02/09/2013,12/08/2012 HPV, Quadrivalent 02/09/2013,12/08/2012 Hep A, ped/adol, 2 dose 01/07/2017,11/15/2014 Hep B, Adolescent or Pediatric 02/11/2001,2000,2000 Hib (PRP-T) 12/27/2001, 1,2000,10/13 IPV 05/21/2005, 2,2000,10/13 Influenza injectable quadriv alent preservative free 01/24/2020,05/12/2019,03/15/2018,01/07,11/15/2014,12/08/2012,05/13/2010 ,11/22/2009,01/04/2009,01/04/2008,12/07/2005,02/09/2002,12/27/2001 Influenza live intranasal qu adrivalent LIAV4 07/09/2009 Influenza, IIV3, injectable 01/04/2009,1 03/05/2007,02/04/2006,02/09,12/27/2001 Influenza, Split (incl. shonda fied surface antigen) 12/08/2012,05/13/2010,11/22/2009 MMR 05/21/2005,08/05/2001 Meningococcal MCV4P [id number]-135 03/15/2018,11/16/19 15 Novel Fiaekoaap-[id number], all formulations 07/09/2009,01/04/2009 Pneumococcal Conjugate PCV 13 04/30/2004 ,02/11/2001,2000,10/13 Pneumococcal Conjugate PCV 7 04/30/2004, 02/11/2001,2000,10/13 Tdap 10/06/2023,06/20/2011 Varicella 01/04/2008,08/05/2001 Family History Medical History Relation Name Comments HTN Mother Relation Name Status Comments Mother Social History Tobacco Use Types Packs/Day Years Used Date Smoking Tobacco: Never Smokeless Tobacco: Never Tobacco Cessation:Counseling Given: Not Answered Alcohol Use Standard Drinks/Week Comments Never 0 (1 standard drink = 0.6 oz pur e alcohol) Depression Answer Date Recorded Patient Health Questionnaire-9 Score 4 10/06/2023 Patient Health Questionnaire-9 Score 4 10/06/2023 Last PHQ-9: Questionnaire Data Not on file 0 10/06/2023 Housing Stability Answer Date Recorded What is your housing situation today? I have rodney pleitez 09/24/[address] you li ve. Do you have problems with any of the following? None of the above 09/24/2023 Food Insecurity Answer Date Recorded Within the past 12 months, y ou worried that your food would run out before you got money to buy more: Sometimes True 2023 Within the past 12 months,th e food you bought just didn't last and you didn't have enough money to get more: Sometimes True 09/24/2023 Transportation Answer Date Recorded In the past 12 months, has l ack of transportation kept you from medical appts, meetings, work or from getting things needed for daily living? No 09/24/2023 Utilities Answer Date Recorded In the past 12 months, has t he electric, gas, oil or water company threatened to shut off services in your home? No 09/24/2023 Depression Answer Date Recorded Patient Health Questionnaire-2 Score 0 10/06/2023 Internet Access Answer Date Recorded Internet Access Q1 Yes 11/02/2023 Internet Access Q2 Not on file 11/02/2023 Sex and Gender Information Value Date Recorded Sex Assigned at Male 12/30/2021 10:22 AM EDT Legal Sex Male 10:22 AM EDT Gender Identity Male 12/30/2021 10:22 AM EDT Sexual Orientation Straight 10/06/2023 10 :50 AM EDT Last Filed Vital Signs Vital Sign Reading Time Taken Comments Blood Pressure 130/90 10/06/2023 10:14 AM EDT Pulse 83 10/06/2023 10:14 AM EDT Temperature 36.5 C (97.7 F) 10/06/2023 10:14 AM EDT Respiratory Rate 20 10/06/2023 10:14 AM EDT Oxygen Saturation 99% 10/06/2023 10:14 AM EDT Inhaled Oxygen Concentration - - Weight 144 kg (317 lb 6.4 oz) 10/06/2023 10:14 A M EDT Height 167.6 cm (5' 6 ) 10/06/2023 10:14 AM EDT Body Mass Index 51.23 10/06/2023 10:14 AM EDT Plan of Treatment Health Maintenance Due Date Last Done Comments Disability Screening 2000 Pneumococcal Vaccine: Pediatrics (0 to 5 Years) and At-Risk Patients (6 to 49) Years (1 of 1 - PPSV23) 2006 04/30/2004, 04/30/2004, 02/11/2001, Additional history exists Alcohol/Substance Use Screening 2012 Family Planning (PISQ) 08/04/2015 SDOH Screening 09/23/2024 09/24/2023 Depression Screening 10/05/2024 10/06/2023, 10/06/19 Tobacco Screening 10/05/2024 10/06/2023 COVID-19 Vaccine ( season) 2024 10/17/2020, 09/26/2020 Influenza Vaccine (#1) 2024 , 05/12/2019, 03/15/2018, Additional history exists Lipid Panel 02/20/2027 02/20/2022 DTaP/Tdap/Td Vaccines (8 - Td or Tdap) 10/05/2033 10/06/2023, 06/20/2011, 05/21/2005, Additional history exists Zoster Vaccines (1 of 2) 2050 RSV Patients and Patients Aged 60 years or older (1 - 1-dose 75+ series) 08/04/2075 Hepatitis B Vaccines Completed 02/11/2001, 2000, 2000 HIB Vaccines Completed 12/27/2001, 01/30, 2000, Additional history exists IPV Vaccines Completed 05/21/2005, 12/01, 2000, Additional history exists HPV Vaccines Completed 11/15/2014, 01/30, 02/09/2013, Additional history exists Hepatitis A Vaccines Completed 01/07/2017, 11/16/19 15 Meningococcal Vaccine Completed 03/15/2018, 015 HIV Screening Completed 02/20/2022 Hepatitis C Screening Completed 02/20/2022 Meningococcal B Vaccine Aged Out No l onger eligible based on patient's age to complete this topic RSV under 20 months Aged Out No longe r eligible based on patient's age to complete this topic Rotavirus Vaccines Aged Out No longer eligible based on patient's age to complete this topic Procedures Procedure Name Priority Date/Time Associated Diagnosis Comments HEPATITIS C AB W/REFL TO HCV RNA, QN, PCR Routine 02/20/2022 12:20 PM EST Proteinuria, unspecified type HIV 1 RNA, QUANTITATIVE REAL TIME PCR Routine 02/20/2022 12:20 PM EST Proteinuria, unspecified type LIPID PANEL, STANDARD Routine 02/20/2022 12:20 PM EST Proteinuria, unspecified type from Last 3 Months or Most Recently Relevant to Health Maintenance Results * Hepatitis C Antibody with Reflex to HCV, RNA, Quantitative, Real-Time PCR (02/20/2022 12:20 PM EST) Hepatitis C Antibody NON-REACT LENCHO NON-REACT LENCHO Red e App Index 0.07 <1.00 Red e App Comment: HCV antibody was non-reactive. There is no laboratory evidence of HCV infection. In most cases, no further action is required. However, if recent HCV exposure is suspected, a test for HCV RNA (test code 12731) is suggested. For additional information please refer to http://education.[employer]/faq/JBF26o1 (This link is being provided for informational/ educational purposes only.) Blood Venous blood specimen / Unknown 02/20/2022 12:20 PM EST 02/20/2022 12:22 PM EST Narrative [facility] - 02/21/2022 4:07 PM EST FASTING:YES COLLECTION KIT GIVEN TO PATIENT. PATIENT ADVISED TO RETURN. FASTING: YES [facility] LAB BLOOD ORDERABLES Final Re sult Performing Organization Address City/[facility]/ZIP Co de Phone Number [address], [place] [address] [facility] [employer] [facility] [address] [place] [address], (Nl2) [place] [address] * HIV-1 RNA, Quantitative, Real-Time PCR (02/20/2022 12:20 PM EST) HIV 1 RNA, QN PCR NOT DETECTED NOT DETECTED copies/mL [employer] [facility] [place] [facility] HIV 1 RNA, QN PCR NOT DETECTED NOT DETECTED Log copies/mL [employer] [facility] Comment: This test was performed using Real-Time Polymerase Chain Reaction. Reportable Range: 20 copies/mL to 10,000,000 copies/mL (1.30 log copies/mL to 7.00 log copies/mL). Blood Venous blood specimen / Unknown 02/20/2022 12:20 PM EST 02/20/2022 12:22 PM EST Narrative [facility] - 02/21/2022 4:07 PM EST FASTING:YES COLLECTION KIT GIVEN TO PATIENT. PATIENT ADVISED TO RETURN. FASTING: YES [facility] LAB BLOOD ORDERABLES Final Re sult Performing Organization Address City/[facility]/ZIP Co de Phone Number [address], [place] [address] [employer] [facility] [address] [place] [address], ([address]) [place] [address] * (ABNORMAL) Lipid Panel, Standard (02/20/2022 12:20 PM EST) Cholesterol, Total 136 <200 mg/dL [employer] [facility] [place] [facility] HDL Cholesterol 37(L) > OR = 40 mg/dL [employer] [facility] [place] [facility] Triglycerides 118 <150 mg/dL [employer] [facility] LDL Cholesterol 79 mg/dL (calc) [employer] [facility] [place] [facility] Comment: Reference range: <100 Desirable range <100 mg/dL for primary prevention; <70 mg/dL for patients with CHD or diabetic patients with > or = 2 CHD risk factors. LDL-C is now calculated using the Roel calculation, which is a validated novel method providing better accuracy than the Friedewald equation in the estimation of LDL-C. Adan SS et al. CHRISTINA. 2013;310(19): 4300-4055 (http://education.[employer]iS/faq/ZJF498) Chol/HDLC Ratio 3.7 <5.0 (calc) [facility] [place] [facility] Non-HDL Cholesterol 99 <130 mg/dL (calc) [facility] [place] [facility] Comment: For patients with diabetes plus 1 major ASCVD risk factor, treating to a non-HDL-C goal of <100 mg/dL (LDL-C of <70 mg/dL) is considered a therapeutic option. Blood Venous blood specimen / Unknown 02/20/2022 12:20 PM EST 02/20/2022 12:22 PM EST Narrative [facility] - 02/21/2022 4:07 PM EST FASTING:YES COLLECTION KIT GIVEN TO PATIENT. PATIENT ADVISED TO RETURN. FASTING: YES [facility] LAB BLOOD ORDERABLES Final Re sult [facility] [address] [facility], [place] [address] [employer] [facility] [place] [facility] [address] [facility], (N[address]) [place] [address] from Last 3 Months or Most Recently Relevant to Health Maintenance Insurance [place] [id number] Member Subscriber Plan / Payer (Ef fective 2022-Present) Name:Dillon Wynn Relation to Subscriber:Self Name:Dillon Wynn Payer ID:Not on file Group ID:Not on file Type:Medicaid Address: [address] [id number] , [address] [place] [address] Care Teams Sailing Officer Relationship Specialty Start Date End Date Ivelisse Dean MD [address] [place] [id number] PCP - General Internal Medicine 11/20/22
--- OUTSIDE RECORDS SUMMARY | 2024-12-30 15:24 | XMS_ITS | Encounter Summary ---
Author Organization [employer] Address [address] [place] [address] [place] [address] Care Team Providers Care Medical Appointment Clerk Name Role Phone Ivelisse Dean MD Primary Care Pro vider Reason for Visit * Reason Onset Date Comments Results 11/21/2022 Encounter Details Date Type Department Care Team ([facility] st Contact Info) Description 11/21/2022 Telephone [facility] MEDICINE [address] [place] [address] Ivelisse Dean MD [address] [place] [address] Results Social History Tobacco Use Types Packs/Day Years Used Date Smoking Tobacco: Never Smokeless Tobacco: Never Alcohol Use Standard Drinks/Week Comments Never 0 (1 standard drink = 0.6 oz pur e alcohol) Sex and Gender Information Value Date Recorded Sex Assigned at Male 12/30/2021 10:22 AM EDT Legal Sex Male 10:22 AM EDT Gender Identity Male 12/30/2021 10:22 AM EDT Sexual Orientation Straight 10/06/2023 10 :50 AM EDT documented as of this encounter Miscellaneous Notes * Telephone Encounter - Carlita Cifuentes - 11/21/2022 10:38 AM EDT Tc from pt requesting to get sleep study results . States got them done [place] [facility] [employer] [facility] . documented in this encounter Plan of Treatment Not on file documented as of this encounter Visit Diagnoses Not on filedocumented in this encounter Care Teams Medical Appointment Clerk Relationship Specialty Start Date End Date Ivelisse Dean MD [address] [place] [id number] PCP - General Internal Medicine 11/20/22 documented as of this encounter
--- OUTSIDE RECORDS SUMMARY | 2024-12-30 15:24 | XMS_ITS | Encounter Summary ---
Author Organization [facility] Address [address] [place] [address] Phone Care Team Providers Care Helpdesk Analyst Name Role Phone Christopher Dwyer MD Primary Care Provider [phone] Encounter Details Date Type Department Care Team (Late st Contact Info) Description 11/27/2009 Documentation EM Family Medicine [address] [place] [address] Family Medicine, Physician [address] [place], [place] [id number] Social History Tobacco Use Types Packs/Day Years [...] on filedocumented in this encounter Care Teams Helpdesk Analyst Relationship Specialty Start Date End Date Christopher Dwyer MD [address] [place] [address] BREANNA Felder [address] PCP - General 10/10/16 08/06/22 documented as of this encounter
== END 2024-12-30 16:00 | disposition home or self-care (01) ==
LOC: HO.HMCFMS 15:06
PROVIDERS: Visit Provider Student in an Organized Health Care Education/Training Program
DX: N20.0 Calculus of kidney (principal); R80.9 Proteinuria, unspecified; I10 Essential (primary) hypertension; E66.9 Obesity, unspecified; G47.33 Obstructive sleep apnea (adult) (pediatric); L73.8 Other specified follicular disorders

== ENCOUNTER 2025-01-03 14:57 | Outpatient (REF) | payer OTHER, SELFPAY ==
[2025-01-03 16:00] LABS: MANUAL DIFF FLAG NO
[2025-01-03 16:16] LABS: Hematocrit 44.3 % (42.0-52.0); Hemoglobin 14.4 g/dl (14.0-18.0); Imm Gran Abs Auto 0.02 X10*3/uL (0.00-0.03); Imm Gran Pct Auto 0.2 % (0.0-0.4); Lymphocytes Absolute Auto 2.9 X10*3/uL (1.2-4.9); Mean Corpuscular HGB Conc 32.5 g/dl (31.0-36.0); Mean Corpuscular Hemoglobin 25.9 pg (27.0-33.0); Mean Corpuscular Volume 79.7 fL (80.0-98.0); NRBC Abs Auto 0.000 X10*3/uL (0.0-0.012); NRBC Pct Auto 0.0 /100WBC (0.0-0.2); Platelet Count 368 X10*3/uL (160-400); Red Blood Count 5.56 X10*6/uL (4.60-5.80); White Blood Count 9.7 X10*3/uL (4.8-10.8)
[2025-01-03 16:24] LABS: Appearance Urine Clear; Glucose Urine UA Negative (Negative); PH 7.5 (5.0-9.0); Specific Gravity - Urine 1.025 (1.005-1.025); UMIC TRIGGER UACC YES
[2025-01-03 16:29] LABS: Alanine Aminotransferase 49 U/L (0-40); Albumin Level 4.8 g/dL (3.5-5.0); Alkaline Phosphatase 76 U/L (39-117); Anion Gap 12 (12-20); Aspartate Amino Transferase 28 U/L (5-37); Blood Urea Nitrogen 15 mg/dL (9-16); Calcium 9.5 mg/dL (8.4-10.2); Carbon Dioxide 27 mmol/L (22-29); Chloride 106 mmol/L (96-108); Cholesterol 160 mg/dL (<200); Estimated Glomerular Filt Rate > 60; HDL Cholesterol 38 mg/dL (>40); Magnesium 2.0 mg/dL (1.6-2.6); Potassium 3.7 mmol/L (3.3-5.1); Sodium 141 mmol/L (135-145); Total Protein 8.3 g/dL (6.5-8.0); Triglycerides 240 mg/dL (<150)
[2025-01-03 17:25] LABS: Folate 6.8 ng/mL (> or = 4.0); Vitamin B12 474 pg/mL (200-900)
[2025-01-03 17:36] LABS: Microalbum/Creatinine Ratio Ur 23.6 ug/mg cr (<30)
--- OUTSIDE RECORDS SUMMARY | 2025-01-03 18:01 | XMS_ITS | Encounter Summary ---
Author Organization [employer] Address [address] [place] [address] [place] [address] Care Team Providers Care Vp & General Counsel Name Role Phone Ivelisse Dean MD Primary Care Pro vider Reason for Visit * Reason Onset Date Comments Results 11/21/2022 Encounter Details Date Type Department Care Team ([facility] st Contact Info) Description 11/21/2022 Telephone [facility] MEDICINE [address] [place] [address] Ivelisse Dean MD [address] [place] [address] Results Social History Tobacco Use Types Packs/Day [...] States got them done last month at [facility] , [employer] work . documented in this encounter Plan of Treatment Not on file documented as of this encounter Visit Diagnoses Not on filedocumented in this encounter Care Teams Vp & General Counsel Relationship Specialty Start Date End Date Ivelisse Dean MD [address] [place] [phone] PCP - General Internal Medicine 11/20/22 documented as of this encounter
--- OUTSIDE RECORDS SUMMARY | 2025-01-03 18:01 | XMS_ITS | Encounter Summary ---
Author Organization [facility] Address [address] [place] [address] Phone Care Team Providers Care Sanitary Chemist Name Role Phone Christopher Dwyer MD Primary Care Provider [phone] Encounter Details Date Type Department Care Team (Late st Contact Info) Description 12/21/2013 Documentation EM Family Medicine [address] [place] [address] Family Medicine, Physician [address] [place] [address] Social History Tobacco Use Types Packs/Day Years [...] on filedocumented in this encounter Care Teams Sanitary Chemist Relationship Specialty Start Date End Date Christopher Dwyer MD [address] [place] [address] BREANNA Felder [address] PCP - General 10/10/16 08/06/22 documented as of this encounter
--- OUTSIDE RECORDS SUMMARY | 2025-01-03 18:01 | XMS_ITS | Encounter Summary ---
Author Organization [facility] Address [address] [place] [address] Phone Care Team Providers Care Dixonac Operator Name Role Phone Christopher Dwyer MD Primary Care Provider [phone] Encounter Details Date Type Department Care Team (Late st Contact Info) Description 10/16/2016 Conversion Encounter [facility] [address] [place] [address] Social History Tobacco Use Types Packs/Day Years [...] on filedocumented in this encounter Care Teams Dixonac Operator Relationship Specialty Start Date End Date Christopher Dwyer MD [address] [place] [address] PCP - General 10/10/16 08/06/22 documented as of this encounter
--- OUTSIDE RECORDS SUMMARY | 2025-01-03 18:01 | XMS_ITS | Encounter Summary ---
Author Organization [facility] Address [address] [place] [address] Phone Care Team Providers Care State Federal Relations Deputy Director Name Role Phone Christopher Dwyer MD Primary Care Provider [phone] Encounter Details Date Type Department Care Team (Late st Contact Info) Description 07/24/2009 Documentation EM Family Medicine [address] [place] [address] Family Medicine, Physician [address] [place], [place] [address] Social History Tobacco Use Types Packs/Day Years [...] on filedocumented in this encounter Care Teams State Federal Relations Deputy Director Relationship Specialty Start Date End Date Christopher Dwyer MD [address] [place] [address] BREANNA Felder [address] PCP - General 10/10/16 08/06/22 documented as of this encounter
--- OUTSIDE RECORDS SUMMARY | 2025-01-03 18:01 | XMS_ITS | Clinical Summary ---
Author Organization [employer] Address [address] [facility] 7[address] [place] [address] Care Team Providers Care Shadowgraph Scale Operator Name Role Phone Ivelisse Dean MD Primary Care Pro vider Allergies [...] 05/21/2005,08/05/2001 Meningococcal MCV4P [id number] 03/15/2018,11/16/19 15 Novel [id number], all formulations 07/09/2009,01/04/2009 Pneumococcal Conjugate PCV 13 [...] Hepatitis C Antibody NON-REACT LENCHO NON-REACT LENCHO [employer] Index 0.07 <1.00 [employer] Comment: HCV antibody was non-reactive. There is no laboratory evidence of HCV infection. In most cases, no further action is required. However, if recent HCV exposure is suspected, a test for HCV RNA (test code 21715) is suggested. For additional information please refer to http://education.[employer]/faq/OFR95u0 (This link is being provided for informational/ educational purposes only.) Blood Venous blood specimen / Unknown 02/20/2022 12:20 PM EST 02/20/2022 12:22 PM EST Narrative [facility] - 02/21/2022 4:07 PM EST FASTING:YES COLLECTION KIT GIVEN TO PATIENT. PATIENT ADVISED TO RETURN. FASTING: YES [facility] LAB BLOOD ORDERABLES Final Re sult Performing Organization Address City/[facility]/ZIP Co de Phone Number [address], [place] [address] [employer] [place] [employer] [address] [place] [address], (Nl2) [place] [address] * HIV-1 RNA, Quantitative, Real-Time PCR (02/20/2022 12:20 PM EST) HIV 1 RNA, QN PCR NOT DETECTED NOT DETECTED copies/mL [employer] [place] [employer] HIV 1 RNA, QN PCR NOT DETECTED NOT DETECTED Log copies/mL [employer] [place] [employer] Comment: This test was performed using Real-Time Polymerase Chain Reaction. Reportable Range: 20 copies/mL to 10,000,000 copies/mL (1.30 log copies/mL to 7.00 log copies/mL). Blood Venous blood specimen / Unknown 02/20/2022 12:20 PM EST 02/20/2022 12:22 PM EST Narrative [facility] - 02/21/2022 4:07 PM EST FASTING:YES COLLECTION KIT GIVEN TO PATIENT. PATIENT ADVISED TO RETURN. FASTING: YES [facility] LAB BLOOD ORDERABLES Final Re sult Performing Organization Address City/[facility]/ZIP Co de Phone Number [address], [place] [address] [employer] [place] [employer] [address] [place] [address], (Nl2) [place] [address] * (ABNORMAL) Lipid Panel, Standard (02/20/2022 12:20 PM EST) Cholesterol, Total 136 <200 mg/dL [employer] [place] [employer] HDL Cholesterol 37(L) > OR = 40 mg/dL [employer] [place] [employer] Triglycerides 118 <150 mg/dL [employer] [place] [employer] LDL Cholesterol 79 mg/dL (calc) [employer] [place] [employer] Comment: Reference range: <100 Desirable range <100 mg/dL for primary prevention; <70 mg/dL for patients with CHD or diabetic patients with > or = 2 CHD risk factors. LDL-C is now calculated using the Roel calculation, which is a validated novel method providing better accuracy than the Friedewald equation in the estimation of LDL-C. Adan SS et al. CHRISTINA. 2013;310(19): 3050-6268 (http://education.[employer]/faq/PGZ354) Chol/HDLC Ratio 3.7 <5.0 (calc) [employer] [place] [employer] Non-HDL Cholesterol 99 <130 mg/dL (calc) [employer] [place] [employer] Comment: For patients with diabetes plus 1 major ASCVD risk factor, treating to a non-HDL-C goal of <100 mg/dL (LDL-C of <70 mg/dL) is considered a therapeutic option. Blood Venous blood specimen / Unknown 02/20/2022 12:20 PM EST 02/20/2022 12:22 PM EST Narrative [facility] - 02/21/2022 4:07 PM EST FASTING:YES COLLECTION KIT GIVEN TO PATIENT. PATIENT ADVISED TO RETURN. FASTING: YES [facility] LAB BLOOD ORDERABLES Final Re sult [facility] [address] [facility], [facility], [place] [address] [employer] [place] [employer] [address] [facility], (Nl2) [place] [address] from Last 3 Months or Most Recently Relevant to Health Maintenance Insurance [place] [id number] Member Subscriber Plan / Payer (Ef fective 2022-Present) Name:Dillon Wynn Relation to Subscriber:Self Name:Dillon Wynn Payer ID:Not on file Group ID:Not on file Type:Medicaid Address: [id number] , [address] [place] [address] Care Teams Shadowgraph Scale Operator Relationship Specialty Start Date End Date Ivelisse Dean MD [address] [place] [address] PCP - General Internal Medicine 11/20/22
--- OUTSIDE RECORDS SUMMARY | 2025-01-03 18:01 | XMS_ITS | Clinical Summary ---
Author Organization [facility] Address [address] [place] [address], [place] [address] Care Team Providers Care Second Hand Paper Machine Name Role Phone Daxa More Primary Care Provider [phone] Allergies No known active allergies Medications tamsulosin (FLOMAX) 0.4 MG 24 hr capsule Take 0.4 mg by mouth 1 (one) time each day Active olmesartan (BENICAR) 5 MG tablet Take 1 tablet (5 mg total) by mouth in the morning and 1 tablet (5 mg total) in the evening. 60 tablet 11 04/07/2022 Active Active Problems Problem Noted Date Diagnosed Date Proteinuria 04/03/2022 Resolved Problems Problem Noted Date Diagnosed Date Resolved Date Migraine without aura, not refractory 02/25/2022 04/04/2022 Attention deficit hyperactivity disorder 03/15/2018 04/04/2022 Mild intermittent asthma 01/07/201704/2022 Immunizations Immunization Administration Dates Next Due DTaP 5 05/21/2005, 2,02/11/2001,2000,0 2000 H1N1 All Forms 07/09/2009,01/04/2009 HPV, Quadrivalent 02/09/2013,12/08/2012 Hep B, Adolescent or Pediatric 02/11/2001,2000,2000 Hib (PRP-T) 12/27/2001,02/11/2001,2000 ,2000 IPV 05/21/2005,12/27/2001,2000 ,2000 Influenza Split 12/08/2012,05/13/2010,11/22/2009 Influenza TIV (IM) 01/04/2009, 8,02/04/2006,02/09/2002,1 MMR 05/21/2005,08/05/2001 Pneumococcal Conjugate 04/30/2004,02/11/2001,12/2000,2000 Tdap 06/20/2011 Varicella 01/04/2008,08/05/2001 Family History Medical History Relation Comments Diabetes Father Diabetes Mother Hypertension Mother Relation Status Comments Father Alive Mother Alive Social History Tobacco Use Types Packs/Day Years Used Date Smoking Tobacco: Never Smokeless Tobacco: Never Tobacco Cessation:Counseling Given: No Alcohol Use Standard Drinks/Week Comments Never 0 (1 standard drink = 0.6 oz pur e alcohol) Sex and Gender Information Value Date Recorded Sex Assigned at Not on file Legal Sex Male 10:51 AM EST Gender Identity Not on file Sexual Orientation Not on file Last Filed Vital Signs Vital Sign Reading Time Taken Comments Blood Pressure 104/70 04/07/2022 2:14 PM EST Pulse 96 04/07/2022 2:14 PM EST Temperature - - Respiratory Rate - - Oxygen Saturation 98% 04/07/2022 2:14 PM EST Inhaled Oxygen Concentration - - Weight - - Height - - Body Mass Index - - Plan of Treatment Health Maintenance Due Date Last Done Comments Influenza Vaccine (#1) 2024 3, 05/13/2010, 11/22/2009, Additional history exists Hepatitis B Vaccine Completed 02/11/2001, 2000, 2000 Pneumococcal Vaccine: Peds (0 to 5 Years) and At-Risk Patients (6 to 49 Years) Aged Out 04/30/2004, 02/11/2001, 2000, Additional history exists No longer eligible based on patient's age to complete this topic [place] Care Teams Second Hand Paper Machine Relationship Specialty Start Date End Date Daxa More FNP PCP - General 02/26/22
--- OUTSIDE RECORDS SUMMARY | 2025-01-03 18:01 | XMS_ITS | Clinical Summary ---
Author Organization [facility] Address [address] [place] [address] Phone Care Team Providers Care Financial Reporting Advisor Name Role Phone Unavailable Primary Care Provider [...]
--- OUTSIDE RECORDS SUMMARY | 2025-01-03 18:01 | XMS_ITS | Encounter Summary ---
Author Organization [facility] Address [address] [place] [address] Phone Care Team Providers Care Space Engineer Name Role Phone Christopher Dwyer MD Primary Care Provider [phone] Encounter Details Date Type Department Care Team (Late st Contact Info) Description 11/27/2009 Documentation EM Family Medicine [address] [place] [address] Family Medicine, Physician [address] [place], [place] [address] Social History Tobacco Use Types Packs/Day Years [...] on filedocumented in this encounter Care Teams Space Engineer Relationship Specialty Start Date End Date Christopher Dwyer MD [address] [place] [address] BREANNA Felder [address] PCP - General 10/10/16 08/06/22 documented as of this encounter
[2025-01-04 10:42] LABS: HBS Num1 2.61 mIU/mL (0-7.99); HBsAGNum1 0.37 S/CO (0.00-0.99); HIV Num 1 0.07 S/CO (0.00-0.99); Hepatitis B Surface Antigen Negative (Negative); ~HepC Num1 0.07 S/CO (0.00-0.79); ~Hepatitis B Surface Antibody NONREACTIVE (Nonreactive); ~Hepatitis C Antibody Nonreactive (Nonreactive)
[2025-01-07 13:22] LABS: VITAMIN D (1,25 OH) D3 63 pg/mL; Vit D (1,25-Dihydroxy) Total 63 pg/mL (18-72); Vitamin D (1,25 OH) D2 <8 pg/mL
== END 2025-01-03 14:58 | disposition home or self-care (01) ==
LOC: HO.HHCL 14:57
PROVIDERS: PCP Student in an Organized Health Care Education/Training Program; Visit Provider Student in an Organized Health Care Education/Training Program
DX: Z13.89 Encounter for screening for other disorder (principal); Z11.4 Encounter for screening for human immunodeficiency virus [HIV]; Z13.1 Encounter for screening for diabetes mellitus; Z13.6 Encounter for screening for cardiovascular disorders; Z13.0 Encounter for screening for diseases of the blood and blood-forming organs and certain disorders involving the immune mechanism
CPT/HCPCS: 36415; 80053; 80061; 81001; 82043; 82570; 82607; 82652; 82746; 83036; 83735; 85025; 86706; 86803; 87340; 87389

== ENCOUNTER 2025-01-11 14:15 | Outpatient (AMB) | payer OTHER, SELFPAY ==
[2025-01-11 14:15] VITALS: BP 148/84; PULSE 107; RESP 16; TEMP 36.6; O2SAT 97; BMI 45.8
--- NOTE | 2025-01-11 14:15 | MHC.PC.OV ---
Vital Signs 01/11/25 14:15 01/11/25 15:00 Height 5 ft 6.14 in Weight 285 lb 4 oz BMI 45.8 BP 148/84 H 127/72 Blood Pressure Location Lt brachial Position Sitting Respiration 16 Pulse 107 H 89 Pulse Source Pulse Oximeter Pulse Oximeter Temp 97.8 F Temp Source Oral Pulse Oximetry (%) 97 Oxygen Delivery Method Room Air Intake Visit Reasons: 2 wk - lab review Allergies No Known Allergies (No Known Allergies*) Allergy (Verified 01/11/25 14:15) Medication List - Last Reconciled 01/12/25 by Wilian Cordon MD clindamycin-benzoyl peroxide 1-5 % 1 appl topical DAILY hydrocortisone 1% 1 appl topical BID PRN Tobacco use date assessed: 12/30/24 Dental Screening Dental Screen Date: 12/30/24 HPI HPI Comments History of Present Illness Details History of Present Illness The patient is a 24-year-old male presenting for review of lab results and evaluation of new-onset chest pain. Chest Pain and Tachycardia: The patient reports an acute onset of sharp chest pain and a sensation of a rapid heart rate that began on his way to the clinic today. He took a pre-workout supplement earlier in the day but was feeling fine afterward. He denies any symptoms of gastric reflux, such as a metallic taste or burning sensations, and denies difficulty breathing. Hematuria and Nephrolithiasis: The patient has a history of kidney stones, which occurred about two to three years ago after the pandemic, and he associated it with drinking a lot of orange soda. He reports experiencing episodes of sharp, stabbing back pain for the past couple of weeks, which is constant when present and then resolves for a period. He also notes persistent bubbles in his urine since the initial kidney stone episode. Abnormal Laboratory Findings: A review of recent labs reveals a low mean corpuscular volume (MCV), which may be indicative of iron deficiency anemia. Liver function tests show a slightly elevated ALT of 49, while AST is normal. Lipid panel is significant for elevated triglycerides at 240 and low HDL at 38. A urinalysis detected moderate blood and a high number of red blood cells. There is also a trace amount of protein in the urine, though the rjijduhjilfu-ui-mslsshgbxu ratio is within normal limits. Social History: - Exercise: Reports that he works out. - Diet: Reports having changed from sodas to sugar-free versions and uses Splenda in his coffee. - He admits to eating candy bars occasionally but tries to avoid them. - He also eats a lot of beans. - Substance Use: Takes pre-workout supplements and creatinine. - He previously took beetroot supplements. Diagnostic Results: - CBC: White blood cells, red blood cells, and hemoglobin are good. - MCV is low. - Chemistry Panel: Sodium and potassium are good. - Renal function is good. - Random glucose is 93. - Hemoglobin A1c is within normal range. - Calcium and magnesium are good. - Liver Function Tests: AST is 28 (normal). - ALT is 49 (high). - Lipid Panel: Total cholesterol is 160. - LDL is 74. - HDL is 38 (low). - Triglycerides are 240 (high). - Urinalysis: Shows moderate blood and high RBCs. - There is a trace amount of protein noted. - Urine yknxxinubahp-rf-voaplgjinw ratio is 23 (normal). - Other labs: Vitamin B12, vitamin D, and folate are good. - Hepatitis B, hepatitis C, and HIV tests are negative. Past Medical History - History of kidney stones approximately 2-3 years ago. Health Maintenance [facility] Medical History (Updated 01/12/25 @ 08:14 by Wilian Cordon MD) Morbidly obese Hypertriglyceridemia Elevated liver enzymes Low mean corpuscular volume (MCV) Back pain, acute History of kidney stones Hematuria Folliculitis barbae BLAINE (obstructive sleep apnea) Hypertension Proteinuria Nephrolithiasis Class 2 obesity Asthma Family History (Updated 12/30/24 @ 15:31 by Paul Thompson MA) Father High cholesterol Mother Stroke Brain aneurysm Social History Housing: House Alcohol intake: never Patient Tobacco Use Status: Never used Tobacco service: No Current occupational status: employed Cognitive needs: No Hearing needs: No Vision needs: Yes (rx glasses) Review of Systems Narrative Review of Systems - Cardiovascular: Reports feeling a rapid heart rate and a sharp chest pain. - Respiratory: Denies difficulty breathing. - Gastrointestinal: Denies metallic taste in mouth or burning sensations. - Genitourinary: Reports bubbles in his urine. - Musculoskeletal: Reports intermittent sharp, stabbing pain in his back for the last few weeks. 10-point ROS reviewed and negative except as noted in HPI Physical exam (Primary Care) Vital Signs: Last Vital Signs Temp 97.8 F 01/11/25 14:15 Pulse 89 01/11/25 15:00 Resp 16 01/11/25 14:15 BP 127/72 01/11/25 15:00 Pulse Ox 97 01/11/25 14:15 Oxygen Delivery Method Room Air 01/11/25 14:15 BMI result Body Mass Index 45.8 Tobacco/Smoking Status: Tobacco use Status Tobacco use date assessed 12/30/24 01/11/25 14:23 Patient Tobacco Use Status Never used Tobacco 01/11/25 14:23 Thrive Assessment: Date of Thrive Assessment Date Thrive assessed 12/30/24 01/11/25 14:16 Narrative Physical Exam General: Well-appearing, in no acute distress. Vital signs: Blood pressure is a little elevated. HEENT: Normocephalic, atraumatic. PERRLA, EOMI. Conjunctiva clear, sclera anicteric. Oropharynx clear, mucous membranes moist. TMs intact bilaterally. Neck: Supple, no lymphadenopathy, no thyromegaly, no JVD or carotid bruits. Cardiovascular: RRR, normal S1/S2, no murmurs, rubs, or gallops. Peripheral pulses 2+ and symmetric. No edema. Respiratory: Lungs clear to auscultation bilaterally, no wheezes, rales, or rhonchi. Normal effort. Abdomen: Soft, non-tender, non-distended. Normoactive bowel sounds. No hepatosplenomegaly, no masses. MSK: Full range of motion, no joint swelling or deformity. Normal gait. Skin: Warm, dry, intact. No rashes, lesions, or pallor. Neuro: Alert and oriented x3. Cranial nerves II-XII intact. Strength 5/5 throughout. Sensation intact. Reflexes 2+ symmetric. Normal coordination and gait. Psych: Appropriate mood and affect. Normal judgment and insight. Coding Level of Care Code Est Pt Level 3 (50212) Diagnoses Hypertension I10 Nephrolithiasis N20.0 Hematuria R31.9 Folliculitis barbae L73.8 Low mean corpuscular volume (MCV) R71.8 Elevated liver enzymes R74.8 Hypertriglyceridemia E78.1 Proteinuria R80.9 Morbidly obese E66.01 Assessment & Plan Assessment & Plan (1) Hypertension: Code(s): I10 - Essential (primary) hypertension Category: Medical (2) Nephrolithiasis: Code(s): N20.0 - Calculus of kidney Category: Medical (3) Hematuria: Code(s): R31.9 - Hematuria, unspecified Category: Medical (4) Folliculitis barbae: Code(s): L73.8 - Other specified follicular disorders Category: Medical (5) Low mean corpuscular volume (MCV): Code(s): R71.8 - Other abnormality of red blood cells Category: Medical (6) Elevated liver enzymes: Code(s): R74.8 - Abnormal levels of other serum enzymes Category: Medical (7) Hypertriglyceridemia: Code(s): E78.1 - Pure hyperglyceridemia Category: Medical (8) Proteinuria: Code(s): R80.9 - Proteinuria, unspecified Category: Medical (9) Morbidly obese: Code(s): E66.01 - Morbid (severe) obesity due to excess calories Category: Medical Plan Consent Patient was informed and verbally consented to the use of an ambient scribe for clinic note documentation during this visit. Plan 1. Hypertriglyceridemia - The patient's triglycerides are elevated at 240, which is likely related to diet. - A referral will be placed for a registered dietitian to provide counseling on lifestyle modifications. - Plan to repeat a lipid panel in three months to monitor triglycerides. 2. Elevated Liver Enzymes - The patient has a mildly elevated ALT of 49. - Will repeat a comprehensive metabolic panel in three months to re-evaluate the liver enzymes. 3. Microscopic Hematuria / History Of Nephrolithiasis - Urinalysis shows moderate blood in the setting of a history of kidney stones and recent sharp back pain. - An ultrasound of the kidneys and bladder will be ordered to evaluate for recurrent stones or other abnormalities. - A repeat urinalysis will be performed in three months. - The patient is advised to follow up after the ultrasound is completed. 4. Chest Pain - The patient's chest pain and elevated blood pressure are noted; he is advised to relax as this may be related to anxiety or his recent pre-workout intake. 5. Suspected Iron Deficiency Anemia - A low MCV suggests possible iron deficiency anemia. - Advised to increase dietary intake of iron-rich foods such as liver, broccoli, spinach, beans, chickpeas, and lentils. - Will repeat a complete blood count in three months to monitor. Discussion Notes I reviewed the patient's recent lab results, noting several findings including a low MCV, elevated ALT, high triglycerides, and microscopic hematuria. We discussed that the elevated triglycerides are manageable with lifestyle changes, and I will place a referral to a registered dietitian for guidance. Given his history of kidney stones and recent sharp back pain, I explained that the blood in his urine warrants further investigation, so I am ordering an ultrasound of his kidneys and bladder. I reassured him that while there is trace protein in the urine, other markers indicate it's not a concern at this time. We also discussed increasing his dietary iron intake for the possible anemia. I advised a follow-up visit in three months to repeat all the abnormal labs, but to come in sooner after his ultrasound is completed. Patient Instructions - I have placed a referral for you to speak with a registered dietitian about your diet. - Please get an ultrasound of your kidneys and bladder as ordered. - Follow up with me after you have the ultrasound results. - Try to increase iron-rich foods in your diet, such as liver, broccoli, spinach, and beans. - We will need to repeat your lab work in three months. Medical Decision Making The patient is a 24-year-old male who presented for a review of laboratory results and new onset of sharp chest pain and tachycardia. His acute chest symptoms are likely benign, possibly musculoskeletal or related to his use of pre-workout supplements, and reassurance was provided. The laboratory review revealed multiple abnormalities requiring management. The hypertriglyceridemia (240 mg/dL) and low HDL (38 mg/dL) will be addressed with dietary counseling via a referral to a registered dietitian, with a plan to recheck lipids in 3 months. The mildly elevated ALT (49 U/L) will also be monitored with repeat labs in 3 months. The low MCV is suggestive of iron deficiency anemia, and initial management will consist of dietary modification with a follow-up CBC. The most significant clinical concern is the microscopic hematuria, especially in the context of the patient's history of nephrolithiasis and recent onset of sharp, intermittent back pain. While small, asymptomatic stones can cause microscopic bleeding, the new pain necessitates further evaluation to rule out obstructive or enlarging calculi. Therefore, an ultrasound of the kidneys and bladder is indicated to assess for structural abnormalities. The trace proteinuria is not clinically concerning at this time, as the urine velnekzuwrsz-yt-mqnrynckaj ratio is within normal limits. A comprehensive lab reassessment in 3 months will determine the trajectory of these findings and guide further management. Total time spent caring for the patient today was 20 minutes. This includes time spent before the visit reviewing the chart, time spent documenting, and time spent reviewing laboratory results, diagnostic imaging, medications, performing a medically necessary evaluation, counseling on diagnoses, care coordination Orders: Orders US retroperitoneal limited 01/11/25 M54.9 - Dorsalgia, unspecified, R31.9 - Hematuria, unspecified, Z87.442 - Personal history of urinary calculi US bladder 01/11/25 R31.9 - Hematuria, unspecified Referrals Nurse Navigator Referral E66.9 - Obesity, unspecified, E78.1 - Pure hyperglyceridemia, R74.8 - Abnormal levels of other serum enzymes
[2025-01-11 15:00] VITALS: BP 127/72; PULSE 89
--- OUTSIDE RECORDS SUMMARY | 2025-01-11 17:34 | XMS_ITS | Encounter Summary ---
Author Organization [facility] Address [address] [place] [address] Phone Care Team Providers Care Derivatives Trader Name Role Phone Christopher Dwyer MD Primary Care Provider [phone] Encounter Details Date Type Department Care Team (Late st Contact Info) Description 07/24/2009 Documentation EM Family Medicine [address] [place] [address] Family Medicine, Physician [address] [place], [place] [address] Social History Tobacco Use Types Packs/Day Years [...] on filedocumented in this encounter Care Teams Derivatives Trader Relationship Specialty Start Date End Date Christopher Dwyer MD [address] [place] [address] BREANNA Felder [address] PCP - General 10/10/16 08/06/22 documented as of this encounter
--- OUTSIDE RECORDS SUMMARY | 2025-01-11 17:34 | XMS_ITS | Encounter Summary ---
Author Organization [employer] Address [address] [place] [address] [place] [address] Care Team Providers Care Byproducts Operator Name Role Phone Ivelisse Dean MD Primary Care Pro vider Reason for Visit * Reason Onset Date Comments Results 11/21/2022 Encounter Details Date Type Department Care Team ([facility] st Contact Info) Description 11/21/[address] [facility] [address] [place] [address] Ivelisse Dean MD [address] [place] [address] Results Social History Tobacco Use Types Packs/Day [...] States got them done last [place] [facility] informsneeds for work . documented in this encounter Plan of Treatment Not on file documented as of this encounter Visit Diagnoses Not on filedocumented in this encounter Care Teams Byproducts Operator Relationship Specialty Start Date End Date Ivelisse Dean MD [address] [place] [address] PCP - General Internal Medicine 11/20/22 documented as of this encounter
--- OUTSIDE RECORDS SUMMARY | 2025-01-11 17:34 | XMS_ITS | Encounter Summary ---
Author Organization [facility] Address [address] [place] [address] Phone Care Team Providers Care Television Production Assistant Name Role Phone Christopher Dwyer MD Primary Care Provider [phone] Encounter Details Date Type Department Care Team (Late st Contact Info) Description 12/21/2013 Documentation EM Family Medicine [address] [place] [address] Family Medicine, Physician [address] [place] [address] Social History Tobacco Use Types Packs/Day Years [...] on filedocumented in this encounter Care Teams Television Production Assistant Relationship Specialty Start Date End Date Christopher Dwyer MD [address] [place] [address] BREANNA Felder [address] PCP - General 10/10/16 08/06/22 documented as of this encounter
--- OUTSIDE RECORDS SUMMARY | 2025-01-11 17:34 | XMS_ITS | Encounter Summary ---
Author Organization [facility] Address [address] [place] [address] Phone Care Team Providers Care Service Operations Manager Name Role Phone Christopher Dwyer MD Primary Care Provider [phone] Encounter Details Date Type Department Care Team (Late st Contact Info) Description 10/16/2016 Conversion Encounter [facility] [place] [address] [place] [address] Social History Tobacco Use Types Packs/Day Years [...] on filedocumented in this encounter Care Teams Service Operations Manager Relationship Specialty Start Date End Date Christopher Dwyer MD [address] [place] [address] PCP - General 10/10/16 08/06/22 documented as of this encounter
--- OUTSIDE RECORDS SUMMARY | 2025-01-11 17:34 | XMS_ITS | Clinical Summary ---
Author Organization [facility] [employer] Address [address] [facility] [address] [place] [address] Care Team Providers Care Quality Project Manager Name Role Phone Ivelisse Dean MD Primary [...] 05/21/2005,08/05/2001 Meningococcal MCV4P [id number] 03/15/2018,11/16/19 15 Novel [id number], all formulations 07/09/2009,01/04/2009 Pneumococcal Conjugate PCV 13 [...] Hepatitis C Antibody NON-REACT LENCHO NON-REACT LENCHO Blue Badge Style Index 0.07 <1.00 [employer] Style Comment: HCV antibody was non-reactive. There is no laboratory evidence of HCV infection. In most cases, no further action is required. However, if recent HCV exposure is suspected, a test for HCV RNA (test code 87188) is suggested. For additional information please refer to http://education.[employer]/faq/ACW52t0 (This link is being provided for informational/ educational purposes only.) Blood Venous blood specimen / Unknown 02/20/2022 12:20 PM EST 02/20/2022 12:22 PM EST Narrative [facility] - 02/21/2022 4:07 PM EST FASTING:YES COLLECTION KIT GIVEN TO PATIENT. PATIENT ADVISED TO RETURN. FASTING: YES [facility] LAB BLOOD ORDERABLES Final Re sult Performing Organization Address City/[facility]/ZIP Co de Phone Number [address], [place] [address] [facility] [address] [place] [address], ([address]l2) [place] [address] * HIV-1 RNA, Quantitative, Real-Time PCR (02/20/2022 12:20 PM EST) HIV 1 RNA, QN PCR NOT DETECTED NOT DETECTED copies/mL [facility] HIV 1 RNA, QN PCR NOT DETECTED NOT DETECTED Log copies/mL [facility] Comment: This test was performed using Real-Time Polymerase Chain Reaction. Reportable Range: 20 copies/mL to 10,000,000 copies/mL (1.30 log copies/mL to 7.00 log copies/mL). Blood Venous blood specimen / Unknown 02/20/2022 12:20 PM EST 02/20/2022 12:22 PM EST Narrative [facility] - 02/21/2022 4:07 PM EST FASTING:YES COLLECTION KIT GIVEN TO PATIENT. PATIENT ADVISED TO RETURN. FASTING: YES [facility] LAB BLOOD ORDERABLES Final Re sult Performing Organization Address City/[facility]/ZIP Co de Phone Number [address], [place] [address] [facility] [address] [place] [address], ([address]l2) [place] [address] * (ABNORMAL) Lipid Panel, Standard (02/20/2022 12:20 PM EST) Cholesterol, Total 136 <200 mg/dL [facility] HDL Cholesterol 37(L) > OR = 40 mg/dL [facility] Triglycerides 118 <150 mg/dL [facility] LDL Cholesterol 79 mg/dL (calc) [facility] Comment: Reference range: <100 Desirable range <100 mg/dL for primary prevention; <70 mg/dL for patients with CHD or diabetic patients with > or = 2 CHD risk factors. LDL-C is now calculated using the Roel calculation, which is a validated novel method providing better accuracy than the Friedewald equation in the estimation of LDL-C. Adan SS et al. CHRISTINA. 2013;310(19): 3417-0011 (http://education.[employer]/faq/KPV373) Chol/HDLC Ratio 3.7 <5.0 (calc) [facility] Non-HDL Cholesterol 99 <130 mg/dL (calc) [facility] Comment: For patients with diabetes plus 1 major ASCVD risk factor, treating to a non-HDL-C goal of <100 mg/dL (LDL-C of <70 mg/dL) is considered a therapeutic option. Blood Venous blood specimen / Unknown 02/20/2022 12:20 PM EST 02/20/2022 12:22 PM EST Narrative [facility] - 02/21/2022 4:07 PM EST FASTING:YES COLLECTION KIT GIVEN TO PATIENT. PATIENT ADVISED TO RETURN. FASTING: YES [facility] LAB BLOOD ORDERABLES Final Re sult [facility] [address] [facility], [facility], [place] [address] [facility] [address] [facility], ([address]) [place] [address] from Last 3 Months or Most Recently Relevant to Health Maintenance Insurance [place] [id number] Member Subscriber Plan / Payer (Ef fective 2022-Present) Name:Dillon Wynn Relation to Subscriber:Self Name:Dillon Wynn Payer ID:Not on file Group ID:Not on file Type:Medicaid Address: [id number] , [address] [place] [address] Care Teams Quality Project Manager Relationship Specialty Start Date End Date Ivelisse Dean MD [address] [place] [id number] PCP - General Internal Medicine 11/20/22
--- OUTSIDE RECORDS SUMMARY | 2025-01-11 17:34 | XMS_ITS | Clinical Summary ---
Author Organization [facility] Address [address] [place] [address], [place] [address] Care Team Providers Care Land Examiner Name Role Phone Daxa More Primary Care Provider [phone] Allergies No known active allergies Medications tamsulosin [...] age to complete this topic [place] Care Teams Land Examiner Relationship Specialty Start Date End Date Daxa More FNP PCP - General 02/26/22
--- OUTSIDE RECORDS SUMMARY | 2025-01-11 17:34 | XMS_ITS | Clinical Summary ---
Author Organization [facility] Address [address] [place] [address] Phone Care Team Providers Care Predator Control Trapper Name Role Phone Unavailable Primary Care Provider [...]
--- OUTSIDE RECORDS SUMMARY | 2025-01-11 17:34 | XMS_ITS | Encounter Summary ---
Author Organization [facility] Address [address] [place] [address] Phone Care Team Providers Care Stock Mixer Name Role Phone Christopher Dwyer MD Primary Care Provider [phone] Encounter Details Date Type Department Care Team (Late st Contact Info) Description 11/27/2009 Documentation [facility] [address] [place] [address] Family Medicine, Physician [address] [place], [place] [address] Social History Tobacco Use Types Packs/Day Years [...] on filedocumented in this encounter Care Teams Stock Mixer Relationship Specialty Start Date End Date Christopher Dwyer MD [address] [place] [address] BREANNA Felder [address] PCP - General 10/10/16 08/06/22 documented as of this encounter
== END 2025-01-11 14:58 | disposition home or self-care (01) ==
LOC: HO.HMCFMS 14:16
PROVIDERS: PCP Student in an Organized Health Care Education/Training Program; Visit Provider Student in an Organized Health Care Education/Training Program
DX: I10 Essential (primary) hypertension (principal); N20.0 Calculus of kidney; R31.9 Hematuria, unspecified; L73.8 Other specified follicular disorders; R71.8 Other abnormality of red blood cells; R74.8 Abnormal levels of other serum enzymes; E78.1 Pure hyperglyceridemia; R80.9 Proteinuria, unspecified; E66.01 Morbid (severe) obesity due to excess calories